=== PATIENT | female | born 1950 | race Caucasian/White ===

== ENCOUNTER → 2017-11-19 11:32 | Outpatient (CLI) | payer MEDICARE, SELFPAY ==
[2017-11-19 15:19] LABS: Anion Gap 9 (5-15); BUN 14 mg/dL (7-18); BUN/Creat Ratio 16.9 RATIO (10-20); Calcium,Total 9.4 mg/dL (8.5-10.1); Chloride 101 mmol/L (98-107); Cholesterol 231 mg/dL (200); Creatinine, Serum 0.83 mg/dL (0.55-1.02); EST Glomerular Filtration Rate 73 mL/min (>60); Est Glom Filt Rate - Afr Amer 88 mL/min (>60); Glucose 94 mg/dL (74-106); High Density Lipoprotein 71 mg/dL; Potassium 3.3 mmol/L (3.5-5.1); Sodium Level 138 mmol/L (136-145); Thyroid Stim Hormone (TSH) 1.46 uIU/mL (0.358-3.74); Triglycerides 140 mg/dL; Very Low Density Lipoprotein 28 mg/dL (5-40)
== END ==
PROVIDERS: Family Provider Family Medicine; PCP Family Medicine; Visit Provider Family Medicine
DX: I10 Essential (primary) hypertension (principal); E78.00 Pure hypercholesterolemia, unspecified; R00.2 Palpitations
CPT/HCPCS: 36415; 80048; 80061; 84443

== ENCOUNTER 2018-01-21 20:59 | Emergency (ER) | payer MEDICARE, SELFPAY ==
[2018-01-21 21:00] VITALS: BP 191/96; PULSE 58; RESP 20; TEMP 36.7; O2SAT 99; BMI 18.8
--- NOTE | 2018-01-21 22:13 | RAD_ITS ---
STUDY: X-RAY - RIGHT SHOULDER REASON FOR EXAM: Female, 67 years old. Fall onto right shoulder. TECHNIQUE: 4 view(s) of the shoulder. COMPARISON: None. FINDINGS: Normal glenohumeral articulation. There is degenerative arthrosis of the acromioclavicular joint without inferior osseous spur formation. There is a comminuted fracture of the lateral clavicle. Normal acromion. There is demineralization of the humerus and visualized osseous structures. The soft tissue structures are unremarkable. Normal visualized pulmonary apex. RAD/Shoulder min 2 Views IMPRESSION: Comminuted fracture of the distal clavicle. Electronically Signed: Jair Rosenbaum DO at 22:37 EST Tel [phone], Service support ,
--- NOTE | 2018-01-21 22:41 | ED.VIS.GEN ---
History of Present Illness Chief Complaint: Fall Informant: Patient Onset: Today Context: Sudden Onset Timing: Continuous Quality: ache/sore Location: right shoulder Current Severity: Mild Maximum Severity: Moderate Worsened by: moving right shoulder, especially above head Relieved by: remaining still Associated Symptoms: none Narrative: Patient was getting out of shower, and slipped on water, falling to her right shoulder. She denies any other injury. She did not hit her head. She has been ambulatory without difficulty, chest pain in her right shoulder. She is right-hand dominant. - Past Medical History (1) HTN (hypertension) Status: Chronic Past Medical History - Allergies and Home Meds Allergies/Adverse Reactions: Allergies Sulfa (Sulfonamide Antibiotics) Allergy (Verified 01/21/18 21:02) Hives TAPE Allergy (Uncoded 01/21/18 21:02) Rash Primary Care Physician: Mikel Meza MD [Primary Care Provider] - Lives: Spouse/ Significant Other Smoking Status: Never smoker Review of Systems Gastrointestinal: Denies: Nausea, Vomiting Musculoskeletal: Reports: Extremity Pain. Denies: Neck pain, Back pain Skin: Denies: Rash, Wounds Neurological: Denies: Headache, Weakness, Numbness Physical Exam Vital Signs/Narrative: Vital Signs Temp Pulse Resp BP Pulse Ox 01/21/18 21:00 98.0 F 58 L 20 H 191/96 H 99 Inital Vital Signs reviewed: Yes General: Well nourished, Well developed, - - well-appearing, nad Head: Normocephalic, Atraumatic Eyes: Perrl, EOMI ENT: Moist mucous membranes, No rhinorrhea Neck: Supple, Nontender, - - FROM Respiratory: No distress, Chest nontender Extremities: No edema, Tenderness - Distal right clavicle including AC joint. No deformities. Nontender at the right proximal humerus. Nontender scapula. Full range of motion of right elbow, wrist. Able to move her right shoulder as far as internal and external rotation and some flexion, but limited range, unable to go above head. Skin: Normal color, No rash Neurological: Alert, Oriented x3, Cranial nerves II-XII grossly intact, Normal Strength, Normal Sensation Psychological: Normal affect Diagnostic/Tx/Re-eval Clinical Impression(s) from Imaging Studies Shoulder X-Ray 01/21/18 22:13 IMPRESSION: Comminuted fracture of the distal clavicle. Electronically Signed: Jair Rosenbaum DO at 22:37 EST Tel [phone], Service support , - Medical Decision Making Patient declined several offers for analgesics here. She also declined a prescription for analgesics. X-ray shows comminuted distal right clavicle fracture. She was advised she will need to follow-up with orthopedics for further evaluation. She was given a sling and instructions for use. ED Disposition - Plan for ED Patient: Disposition: Home or Assisted Living Chief Complaint: Fall Diagnosis: Displaced fracture of lateral end of right clavicle Instructions: ED Fx Clavicle Referrals: Magalie Holt DO [STAFF PHYSICIAN] - 1 Week
--- NOTE | 2018-01-21 22:46 | ED.DCSUM_ITS ---
History of Present Illness Chief Complaint: Fall Informant: Patient Onset: Today Context: Sudden Onset Timing: Continuous Quality: ache/sore Location: right shoulder Current Severity: Mild Maximum Severity: Moderate Worsened by: moving right shoulder, especially above head Relieved by: remaining still Associated Symptoms: none Narrative: Patient was getting out of shower, and slipped on water, falling to her right shoulder. She denies any other injury. She did not hit her head. She has been ambulatory without difficulty, chest pain in her right shoulder. She is right- hand dominant. - Past Medical History (1) HTN (hypertension) Status: Chronic Past Medical History - Allergies and Home Meds Allergies/Adverse Reactions: Allergies Sulfa (Sulfonamide Antibiotics) Allergy (Verified 01/21/18 21:02) Hives TAPE Allergy (Uncoded 01/21/18 21:02) Rash Primary Care Physician: Mikel Meza MD [Primary Care Provider] - Lives: Spouse/ Significant Other Smoking Status: Never smoker Review of Systems Gastrointestinal: Denies: Nausea, Vomiting Musculoskeletal: Reports: Extremity Pain. Denies: Neck pain, Back pain Skin: Denies: Rash, Wounds Neurological: Denies: Headache, Weakness, Numbness Physical Exam Vital Signs/Narrative: Vital Signs Temp Pulse Resp BP Pulse Ox 01/21/18 21:00 98.0 F 58 L 20 H 191/96 H 99 Inital Vital Signs reviewed: Yes General: Well nourished, Well developed, - - well-appearing, nad Head: Normocephalic, Atraumatic Eyes: Perrl, EOMI ENT: Moist mucous membranes, No rhinorrhea Neck: Supple, Nontender, - - FROM Respiratory: No distress, Chest nontender Extremities: No edema, Tenderness - Distal right clavicle including AC joint. No deformities. Nontender at the right proximal humerus. Nontender scapula. Full range of motion of right elbow, wrist. Able to move her right shoulder as far as internal and external rotation and some flexion, but limited range, unable to go above head. Skin: Normal color, No rash Neurological: Alert, Oriented x3, Cranial nerves II-XII grossly intact, Normal Strength, Normal Sensation Psychological: Normal affect Diagnostic/Tx/Re-eval Clinical Impression(s) from Imaging Studies Shoulder X-Ray 01/21/18 22:13 IMPRESSION: Comminuted fracture of the distal clavicle. Electronically Signed: Jair Rosenbaum DO at 22:37 EST Tel [phone], Service support , - Medical Decision Making Patient declined several offers for analgesics here. She also declined a prescription for analgesics. X-ray shows comminuted distal right clavicle fracture. She was advised she will need to follow-up with orthopedics for further evaluation. She was given a sling and instructions for use. ED Disposition - Plan for ED Patient: Disposition: Home or Assisted Living Chief Complaint: Fall Diagnosis: Displaced fracture of lateral end of right clavicle Instructions: ED Fx Clavicle Referrals: Magalie Holt DO [STAFF PHYSICIAN] - 1 Week
[2018-01-21 22:53] VITALS: BP 132/78; PULSE 68; RESP 16; O2SAT 98
== END 2018-01-21 23:01 | disposition home or self-care (01) ==
PROVIDERS: Emergency Provider Emergency Medicine; Family Provider Family Medicine; PCP Family Medicine
DX: S42.031A Displaced fracture of lateral end of right clavicle, initial encounter for closed fracture (principal); W01.0XXA Fall on same level from slipping, tripping and stumbling without subsequent striking against object, initial encounter; Y93.E1 Activity, personal bathing and showering; Y92.002 Bathroom of unspecified non-institutional (private) residence as the place of occurrence of the external cause; Y99.9 Unspecified external cause status; I10 Essential (primary) hypertension
CPT/HCPCS: 73030; 99282

== ENCOUNTER → 2018-01-27 09:35 | Outpatient (CLI) | payer MEDICARE, SELFPAY ==
--- NOTE | 2018-01-27 09:36 | RAD_ITS ---
STUDY: X-RAY - RIGHT CLAVICLE REASON FOR EXAM: Follow-up clavicle fracture. TECHNIQUE: 2 view(s) of the clavicle. COMPARISON: Radiographs 01/21/2018. FINDINGS: There is a minimally displaced fracture of the distal clavicle. Normal acromioclavicular articulation. Normal visualized sternoclavicular articulation. Normal visualized pulmonary apex. RAD/Clavicle IMPRESSION: No interval change of distal clavicle fracture. Electronically Signed: Nathaniel Rosenberg MD at 12:59 EST Tel , Service support ,
== END ==
PROVIDERS: Family Provider Family Medicine; PCP Family Medicine; Referring Provider Orthopaedic Surgery; Visit Provider Orthopaedic Surgery
DX: S42.001A Fracture of unspecified part of right clavicle, initial encounter for closed fracture (principal); X58.XXXA Exposure to other specified factors, initial encounter; Y93.9 Activity, unspecified; Y92.9 Unspecified place or not applicable; Y99.9 Unspecified external cause status
CPT/HCPCS: 73000

== ENCOUNTER → 2018-02-03 14:14 | Outpatient (CLI) | payer MEDICARE, SELFPAY ==
[2018-01-21 21:00] VITALS: BMI 18.8
--- NOTE | 2018-02-03 14:16 | RAD_ITS ---
STUDY: X-RAY - RIGHT CLAVICLE REASON FOR EXAM: Female, 67 years old. Clavicle fracture follow-up TECHNIQUE: 2 view(s) of the clavicle. COMPARISON: 01/27/2018 FINDINGS: Minimally displaced fracture of the distal clavicle is similar when compared to the prior study. Normal acromioclavicular articulation. Normal visualized sternoclavicular articulation. Pleural thickening at the right apex is stable. RAD/Clavicle IMPRESSION: 1. Stable distal right clavicle fracture. Electronically Signed: Lambert Mejia MD at 8:39 EST , Service support ,
== END ==
PROVIDERS: Family Provider Family Medicine; PCP Family Medicine; Referring Provider Physician Assistant; Visit Provider Physician Assistant
DX: S42.001A Fracture of unspecified part of right clavicle, initial encounter for closed fracture (principal); X58.XXXA Exposure to other specified factors, initial encounter; Y93.9 Activity, unspecified; Y92.9 Unspecified place or not applicable; Y99.9 Unspecified external cause status
CPT/HCPCS: 73000

== ENCOUNTER → 2018-02-13 13:29 | Outpatient (CLI) | payer MEDICARE, SELFPAY ==
[2018-01-21 21:00] VITALS: BMI 18.8
--- NOTE | 2018-02-13 13:36 | RAD_ITS ---
HISTORY: Follow-up of fracture COMPARISON: None FINDINGS: Right clavicle 2 views: Redemonstration of a comminuted mildly displaced fracture of the distal right clavicle. Fracture fragments are unchanged in position and fracture lines are less distinct compatible with partial healing. Biapical pleural-parenchymal scarring. No dislocation of the shoulder. RAD/Clavicle IMPRESSION: 1. Healing fracture of the distal right clavicle with stable position of the fracture fragments. at 0720 Reported and signed by: Alirio Ignacio MD Electronically Signed: Alirio Ignacio, at 7:18 EST Tel , Service support ,
--- OUTSIDE RECORDS SUMMARY | 2018-04-10 12:52 | XMS RPT_ITS ---
:1950 Author Organization OH[facility] Care Team Providers Name Role Phone IKER GONSALES Referring Unavailable IKER GONSALES Referring Unavailable Mikel Meza Attending Unavailable Mikel Meza Referring Unavailable Mikel Meza Primary Care Unavailable Mikel Meza Primary Care Unavailable CRYSTAL ARMENDARIZ Attending Unavailable Magalie Holt Attending Unavailable Mikel Meza Referring Unavailable Magalie Holt Attending Unavailable Magalie Holt Referring Unavailable Mikel Meza Primary Care Unavailable Alirio Mendez Attending Unavailable Mikel Meza Referring Unavailable Alirio Mendez Attending Unavailable Alirio Mendez Referring Unavailable Mikel Meza Primary Care Unavailable Alirio Mendez Attending Unavailable Mikel Meza Referring Unavailable Alirio Mendez Attending Unavailable Vanessa, Alirio Referring Unavailable Mikel Meza Primary Care Unavailable PROBLEMS PROBLEMS DATE TYPE CONDITION / CODE ATTENDING STATUS SOURCE 02/13/2018 Unknown S42.001A - Vanessa Alirio Active [place] [facility] Repository clavicle, initial encounter for closed fracture / S42.001A(ICD-10) 08/05/2017 Active Unknown / NA Active [facility] UNK(Unknown) [facility] [place] [facility] 03/18/2017 Active Encounter for NA Active [facility] screening for [facility] [place] malignant Repository neoplasm of colon / Z12.11(ICD-10) PROCEDURES PROCEDURES No Procedure Records FoundRESULTS RESULTS ORTHOPEDIC VISIT Observed: 02/16/2018 Status: F Source: JARED REPORT 4:15 PM [facility] REPOSITORY [facility] [address] [place] [address] OFFICE VISIT Date of Service: 02/13/18 MR#: [id number] Acct: [id number] Name: TYESHA ARREGUIN Rep #: [id number] : 1950 Provider: MIHAI Mendez Age/Sex: 67/F Location: [facility] [place].[facility] Status: Signed Intake Intake Visit Reasons: RIGHT CLAVICLE Is patient in pain?: Yes Pain scale (1-10): 2 Allergies Sulfa (Sulfonamide Antibiotics) Allergy (Verified 02/13/18 13:30) Hives TAPE Allergy (Uncoded 01/21/18 21:02) Rash PFSH Social History Smoking Status: Never smoker HPI RIGHT CLAVICLE: Details: TYESHA ARREGUIN is a 67 year old F here today for a followup on her right clavicle fracture. She states that she is doing much better and having minimal pain. Patient wears her sling most of the time. She has been able to remove her sling and move her elbow and shoulder slightly. Denies numbness, tingling or other associated symptoms. ROS Const Reports system reviewed and no additional complaints, except as docu Eyes Reports system reviewed and no additional complaints, except as docu ENT Reports system reviewed and no additional complaints, except as docu Card Reports system reviewed and no additional complaints, except as docu Resp Reports system reviewed and no additional complaints, except as docu GI Reports system reviewed and no additional complaints, except as docu Reports system reviewed and no additional complaints, except as docu Musc Reports joint pain Skin/Breast Reports system reviewed and no additional complaints, except as docu Neuro Yes system reviewed and no additional complaints, except as docu Psych Reports system reviewed and no additional complaints, except as docu Endo Reports system reviewed and no additional complaints, except as docu Ortho Exam Right Shoulder Skin/Wound: No ecchymosis Contralateral Normal: Yes Testing: Negative AROM-Forward Elevation 0-180, AROM-External Rotation at side 0-60, TTP Biceps or TTP AC Joint SHOULDER: Today in the office there is no evident abnormalities of the right shoulder. She has no localized swelling or ecchymosis at the fracture site. Patient does not have any tenderness on palpation of the distal clavicle where the fracture exists. She still has limited range of motion and stiffness in the shoulder just from being immobilized in a sling for the past 2-3 weeks. She does have good mobility of the elbow at this time. Assessment AND Plan Problems 1. Closed nondisplaced fracture of acromial end of right clavicle with routine healing, subsequent encounter S42.034D Plan Obtained Xrays of patient's right clavicle. Personally reviewed Xrays. There is still an obvious fracture noted with minimal callus formation at the site. There is no dislocation, or lucency noted. See chart for further details. We discussed the x-ray images today which will show no change in position of the same time no obvious callus formation at the site either. She does show improvement in pain as well as having no tenderness at the fracture site today which would indicate there is probably some callus formation forming just not noted on imaging. She is to continue to mobilize the elbow and can use this as tolerated. At this point I feel she is okay to begin to do some passive pendulum swings to start working on some range of motion of the shoulder. I would not do any active movement quite yet but want to start mobilizing the shoulder. She still is to wear the sling when she is out and about can take it off when she is resting at home. Continue to ice and take anti-inflammatories as needed. We will recheck in 3-4 weeks which will be a total of 6 weeks in the sling. We will get x-rays at that time and hope to be able to remove the sling for good to start her in a more active physical therapy. She is to notify of any injuries or worsening pains or problems in the meantime. This note was generated with [employer] dictation software. It may contain incorrect words, spelling, and punctuation that were not noted in checking the note before signing. Orders Orders: Plan Detail Follow Up 1 Month Coding Level of Care Code Off vis,est,level 3 Diagnoses Closed nondisplaced fracture of acromial end of right clavicle with routine healing, subsequent encounter S42.034D Encounter type: subsequent encounter Clavicle location: lateral end Fracture type: closed Fracture alignment: nondisplaced Fracture healing: with routine healing 02/16/18 1615 <Electronically signed by Alirio HOLM> Date Alirio HOLM Cosigner Signature: Date (if applicable) CC: CLAVICLE Observed: 02/13/2018 Status: F Source: [place] 1:36 PM [facility] REPOSITORY [facility] [place] Imaging Services [address] [place] [address] Clavicle MR#: [id number] Acct: [id number] Name: TYESHA ARREGUIN Rep #: [id number] : 1950 F 67 From: Alirio Ignacio MD PCP: Mikel Meza MD Status: REG CLI Study: Clavicle Date of Exam: 02/13/18 Exam# [id number] Ordering Dr: Alirio Mendez HISTORY: Follow-up of fracture COMPARISON: None FINDINGS: Right clavicle 2 views: Redemonstration of a comminuted mildly displaced fracture of the distal right clavicle. Fracture fragments are unchanged in position and fracture lines are less distinct compatible with partial healing. Biapical pleural-parenchymal scarring. No dislocation of the shoulder. RAD/Clavicle IMPRESSION: 1. Healing fracture of the distal right clavicle with stable position of the fracture fragments. at 0720 Reported and signed by: Alirio Ignacio MD Electronically Signed: Alirio Ignacio, at 7:18 EST Tel , Service support , CC: MIHAI Mendez; Mikel Meza MD Early Morning Babysitter: Signed ORTHOPEDIC VISIT Observed: 02/04/2018 Status: F Source: JARED REPORT 10:36 AM [facility] REPOSITORY [facility] Orthopaedics AND Sports Medicine [address] [place] [address] [address] [place] [address] OFFICE VISIT Date of Service: 02/03/18 MR#: [id number] Acct: [id number] Name: TYESHA ARREGUIN Rep #: [id number] : 1950 Provider: MIHAI Mendez Age/Sex: 67/F Location: [facility] [place].[facility] Status: Signed Intake Intake Visit Reasons: RIGHT CLAVICLE Is patient in pain?: No Allergies Sulfa (Sulfonamide Antibiotics) Allergy (Verified 02/03/18 14:21) Hives TAPE Allergy (Uncoded 01/21/18 21:02) Rash PFSH Social History Smoking Status: Never smoker HPI RIGHT CLAVICLE: Details: TYESHA ARREGUIN is a 67 year old F here today for right clavicle fracture followup. Patient notes that she has no pain currently but she has not been moving her arm. Patient states that she has been wearing her sling at all times. Her pain worsens in the evening. She states that she has numbness into her hand in the evening. ROS Const Reports system reviewed and no additional complaints, except as docu Eyes Reports system reviewed and no additional complaints, except as docu ENT Reports system reviewed and no additional complaints, except as docu Card Reports system reviewed and no additional complaints, except as docu Resp Reports system reviewed and no additional complaints, except as docu GI Reports system reviewed and no additional complaints, except as docu Reports system reviewed and no additional complaints, except as docu Skin/Breast Reports system reviewed and no additional complaints, except as docu Neuro Yes system reviewed and no additional complaints, except as docu Psych Reports system reviewed and no additional complaints, except as docu Endo Reports system reviewed and no additional complaints, except as docu Ortho Exam Right Shoulder Skin/Wound: No ecchymosis Contralateral Normal: Yes SHOULDER: Patient is currently wearing her sling in the office today. She has no ecchymosis around the fracture site today. She does not have any tenderness with light palpation of the fracture site. She does have some minor tenderness on the acromial spine and some on the adjacent trapezius muscles. Assessment AND Plan Problems 1. Closed nondisplaced fracture of acromial end of right clavicle, initial encounter S42.034A Plan Obtained Xrays of patient's right clavicle. Personally reviewed Xrays with physician and patient. Patient showed a continued fracture in the distal clavicle area without any significant changes from previous exam. Patient has been doing very well following her sling. Because she is wearing her sling so often this is likely causing some little bit of irritation of the ulnar nerve which is the numbness and tingling that she gets at the end of the day. She is able to remove the sling just to do some movements of her elbow to help reduce this. Otherwise she can continue to stay in the sling for 1 more week to see if this fracture can callus in a little more. She has no tenderness on palpation today no evident ecchymosis or major swelling of the site. She does still guard a loss using the trapezius muscles to hold the arm up which is likely causing some tightness of the muscles in this area. She denies the area and continue to use anti-inflammatories as needed for pain. Patient is scheduled to leave for on Friday for thanksgiving which at this time there is no reason she cannot do that. Patient will follow-up in 1 week for repeat x-rays. She can notify the office in the mean time with any injuries, worsening, or new symptoms. Orders Orders: Plan Detail Follow Up 1 Week Coding Level of Care Code Off vis,est,level 3 Diagnoses Closed nondisplaced fracture of acromial end of right clavicle, initial encounter S42.034A Encounter type: initial encounter Clavicle location: lateral end Fracture type: closed Fracture alignment: nondisplaced 02/04/18 1036 <Electronically signed by Alirio HOLM> Date [facility]: Date (if applicable) CC: CLAVICLE Observed: 02/03/2018 Status: F Source: JARED 2:16 PM [facility] REPOSITORY [facility] Imaging Services [address] [place] [address] Clavicle MR#: [id number] Acct: [id number] Name: TYESHA ARREGUIN Rep #: [id number] : 1950 F 67 From: Lambert Mejia MD PCP: Mikel Meza MD Status: REG CLI Study: Clavicle Date of Exam: 02/03/18 Exam# [id number] Ordering Dr: Alirio Mendez STUDY: X-RAY - RIGHT CLAVICLE REASON FOR EXAM: Female, 67 years old. Clavicle fracture follow-up TECHNIQUE: 2 view(s) of the clavicle. COMPARISON: 01/27/2018 FINDINGS: Minimally displaced fracture of the distal clavicle is similar when compared to the prior study. Normal acromioclavicular articulation. Normal visualized sternoclavicular articulation. Pleural thickening at the right apex is stable. RAD/Clavicle IMPRESSION: 1. Stable distal right clavicle fracture. Electronically Signed: Lambert Mejia MD at 8:39 EST , Service support , CC: MIHAI Mendez; Mikel Meza MD Early Morning Babysitter: Signed ORTHOPEDIC VISIT Observed: 01/27/2018 Status: F Source: JARED REPORT 1:11 PM [facility] REPOSITORY [facility] Orthopaedics AND Sports Medicine [address] [place] [address] OFFICE VISIT Date of Service: 01/27/18 MR#: [id number] Acct: [id number] Name: TYESHA ARREGUIN Rep #: [id number] : 1950 Provider: Magalie Holt DO Age/Sex: 67/F Location: [facility] [place].[facility] Status: Signed Intake Intake Visit Reasons: RT CLAVICLE Is patient in pain?: Yes Allergies Sulfa (Sulfonamide Antibiotics) Allergy (Verified 01/21/18 21:02) Hives TAPE Allergy (Uncoded 01/21/18 21:02) Rash PFSH Social History Smoking Status: Never smoker HPI RT CLAVICLE: Details: TYESHA ARREGUIN is a 67 year old F here today for right clavicle fracture from last when she slipped in the shower landing directly on the left shoulder. She went to the ED and had xrays. She is using tylenol for pain but has been decreasing the use. She complains of shoulder pain. Denies numbness, tingling or other associated symptoms. ROS Musc Reports limited joint movement, Reports joint pain, Reports stiffness, Reports as per HPI Assessment AND Plan 1. Closed displaced fracture of acromial end of right clavicle, initial encounter S42.031A Plan Discussed at this point does not appear that she may need surgical intervention but will follow her closely with x-rays and this may change. Discuss impingement subacromial due to callus and this may need to be addressed at a future time but at this point we will re-x-ray her in 1 week ensure that has not moved if it has we will discuss surgical intervention at that time. X-rays were reviewed and her fracture is stable with no signs of movement since last week. Explained that she can remain in the sling. She should rest as much as possible and limit use of the right side to allow for healing but work on hand, wrist and elbow rom. Reviewed her travel plans and will discuss further with next set of xrays. Follow up in a week for repeat xrays or sooner if pain, swelling, numbness or associated symptoms, or concerns develop. All questions answered. Patient in agreement of plan. Plan Detail Other Orders Orders: Coding Level of Care Code Off vis,new,level 3 Diagnoses Closed displaced fracture of acromial end of right clavicle, initial encounter S42.031A Clavicle location: lateral end Encounter type: initial encounter Fracture alignment: displaced Fracture type: closed 01/27/18 1311 <Electronically signed by Magalie Holt DO> Date Magalie Holt DO Cosigner Signature: Date (if applicable) CC: CLAVICLE Observed: 01/27/2018 Status: F Source: [place] 9:36 AM [facility] REPOSITORY [facility] Imaging Services [address] [place] [address] Clavicle MR#: [id number] Acct: [id number] Name: TYESHA ARREGUIN Rep #: [id number] : 1950 F 67 From: Nathaniel Rosenberg MD PCP: Mikel Meza MD Status: REG CLI Study: Clavicle Date of Exam: 01/27/18 Exam# [id number] Ordering Dr: Magalie Holt DO STUDY: X-RAY - RIGHT CLAVICLE REASON FOR EXAM: Follow-up clavicle fracture. TECHNIQUE: 2 view(s) of the clavicle. COMPARISON: Radiographs 01/21/2018. FINDINGS: There is a minimally displaced fracture of the distal clavicle. Normal acromioclavicular articulation. Normal visualized sternoclavicular articulation. Normal visualized pulmonary apex. RAD/Clavicle IMPRESSION: No interval change of distal clavicle fracture. Electronically Signed: Nathaniel Rosenberg MD at 12:59 EST Tel , Service support , CC: Magalie Holt DO; Mikel Meza MD Early Morning Babysitter: Signed EMERGENCY DEPARTMENT Observed: 01/21/2018 Status: F Source: JARED SUMMARY 10:58 PM [facility] REPOSITORY [facility] Medical Records Department [address] [place] [address] Emergency Department Summary 01/21/18 2241 MR#: [id number] Acct: [id number] Name: TYESHA ARREGUIN Rep #: [id number] : 1950 67 From: Crystal Armendariz MD PCP: Mikel Meza MD Status: REG ER History of Present Illness Chief Complaint: Fall Informant: Patient Onset: Today Context: Sudden Onset Timing: Continuous Quality: ache/sore Location: right shoulder Current Severity: Mild Maximum Severity: Moderate Worsened by: moving right shoulder, especially above head Relieved by: remaining still Associated Symptoms: none Narrative: Patient was getting out of shower, and slipped on water, falling to her right shoulder. She denies any other injury. She did not hit her head. She has been ambulatory without difficulty, chest pain in her right shoulder. She is right- hand dominant. - Past Medical History (1) HTN (hypertension) Status: Chronic Past Medical History - Allergies and Home Meds Allergies/Adverse Reactions: Allergies Sulfa (Sulfonamide Antibiotics) Allergy (Verified 01/21/18 21:02) Hives TAPE Allergy (Uncoded 01/21/18 21:02) Rash Primary Care Physician: Mikel Meza MD [Primary Care Provider] - Lives: Spouse/ Significant Other Smoking Status: Never smoker Review of Systems Gastrointestinal: Denies: Nausea, Vomiting Musculoskeletal: Reports: Extremity Pain. Denies: Neck pain, Back pain Skin: Denies: Rash, Wounds Neurological: Denies: Headache, Weakness, Numbness Physical Exam Vital Signs/Narrative: Vital Signs 01/21/18 21:00 98.0 F 58 L 20 H 191/96 H 99 Inital Vital Signs reviewed: Yes General: Well nourished, Well developed, - - well-appearing, nad Head: Normocephalic, Atraumatic Eyes: Perrl, EOMI ENT: Moist mucous membranes, No rhinorrhea Neck: Supple, Nontender, - - FROM Respiratory: No distress, Chest nontender Extremities: No edema, Tenderness - Distal right clavicle including AC joint. No deformities. Nontender at the right proximal humerus. Nontender scapula. Full range of motion of right elbow, wrist. Able to move her right shoulder as far as internal and external rotation and some flexion, but limited range, unable to go above head. Skin: Normal color, No rash Neurological: Alert, Oriented x3, Cranial nerves II-XII grossly intact, Normal Strength, Normal Sensation Psychological: Normal affect Diagnostic/Tx/Re-eval Clinical Impression(s) from Imaging Studies Shoulder X-Ray 01/21/18 22:13 IMPRESSION: Comminuted fracture of the distal clavicle. Electronically Signed: Jair Rosenbaum DO at 22:37 EST Tel [phone], Service support , - Medical Decision Making Patient declined several offers for analgesics here. She also declined a prescription for analgesics. X-ray shows comminuted distal right clavicle fracture. She was advised she will need to follow-up with orthopedics for further evaluation. She was given a sling and instructions for use. ED Disposition - Plan for ED Patient: Disposition: Home or Assisted Living Chief Complaint: Fall Diagnosis: Displaced fracture of lateral end of right clavicle Instructions: ED Fx Clavicle Referrals: Magalie Holt DO [STAFF PHYSICIAN] - 1 Week What to do if you have Problems For any increased pain, shortness of breath, bleeding, nausea or vomiting, chest pain, or any unexpected problems, contact your Primary Care Provider. Call [facility] ([phone]) or report to the closest Emergency Room. Call 911 if necessary. 01/21/18 9759 <Electronically signed by Crystal Armendariz MD> Date Crystal Armendariz MD Cosigner Signature (If Indicated): Date CC: Mikel Meza MD SHOULDER MIN 2 VIEWS Observed: 01/21/2018 Status: F Source: JARED 10:13 PM [facility] REPOSITORY [facility] Imaging Services [address] [place] [address] Shoulder min 2 Views MR#: [id number] Acct: [id number] Name: TYESHA ARREGUIN Rep #: [id number] : 1950 F 67 From: Jair Rosenbaum DO PCP: Mikel Meza MD Status: REG ER Study: Shoulder min 2 Views Date of Exam: 01/21/18 Exam# [id number] Ordering Dr: Crystal Armendariz MD STUDY: X-RAY - RIGHT SHOULDER REASON FOR EXAM: Female, 67 years old. Fall onto right shoulder. TECHNIQUE: 4 view(s) of the shoulder. COMPARISON: None. FINDINGS: Normal glenohumeral articulation. There is degenerative arthrosis of the acromioclavicular joint without inferior osseous spur formation. There is a comminuted fracture of the lateral clavicle. Normal acromion. There is demineralization of the humerus and visualized osseous structures. The soft tissue structures are unremarkable. Normal visualized pulmonary apex. RAD/Shoulder min 2 Views IMPRESSION: Comminuted fracture of the distal clavicle. Electronically Signed: Jair Rosenbaum DO at 22:37 EST Tel [phone], Service support , CC: CRYSTAL ARMENDARIZ MD; Mikel Meza MD Early Morning Babysitter: Signed BASIC METABOLIC Collected: 11/19/2017 Status: F Source: JARED PROFILE (BMP) 11:37 AM [facility] REPOSITORY Order Comment: Order Date: 05/29/17 Order Info: 0667-1 - BMP Order Info: [id number] - LIPID Order Info: 3016-3 - TSH TYPE CODE TESTS RESULT OUT OF RANGE REFERENCE UNITS LAB L501.0100 74-106 mg/dL Normal GLU 94 Result Comment: Please note revised GLUCOSE reference range effective 2017. LAB L501.1000 7-18 mg/dL Normal BUN 14 LAB L501.1100 0.55-1.02 mg/dL Normal CREAT,SERUM 0.83 Result Comment: The validity of the calculated GFR AND GFRAA in patients over 70 years has not been determined. Clinical correlation is essential. LAB L501.1110 >60 mL/min Normal EST GFR 73 Result Comment: Non- GFR Calc LAB L501.1115 >60 mL/min Normal EST GFR - AA 88 Result Comment: GFR Calc LAB L501.1300 10-20 RATIO Normal BUN/CRE 16.9 LAB L501.2200 8.5-10.1 mg/dL CA Normal 9.4 LAB L501.5300 136-145 mmol/L NA Normal 138 LAB L501.5600 3.5-5.1 mmol/L Low K 3.3 LAB L501.5900 98-107 mmol/L CL Normal 101 LAB L501.6100 21.0-32.0 mmol/L Normal CO2 28.0 LAB L501.6200 5-15 Normal GAP 9 Performed By: #### L500.2500, L500.4100, L501.9520 #### [facility] [address] [place], [place], [address] LIPID PROFILE Collected: 11/19/2017 Status: F Source: JARED 11:37 AM [facility] REPOSITORY Order Comment: Order Date: 05/29/17 Order Info: 0667-1 - BMP Order Info: [id number] - LIPID Order Info: 3016-3 - TSH TYPE CODE TESTS RESULT OUT OF RANGE REFERENCE UNITS LAB L501.4900 200 mg/dL High CHOL 231 Result Comment: <200 mg/dL Desirable 200-240 mg/dL Borderline >240 mg/dL High Risk LAB L501.5000 mg/dL Normal TRIG 140 Result Comment: The drugs N-Acetylcysteine and Metamizole may falsely depress this assay. Serum Triglycerides Reference Interval Normal <150 mg/dL Borderline high 150 - 199 mg/dL High 200 - 499 mg/dL Very High > or = 500 mg/dL LAB L501.6400 mg/dL Normal HDL 71 Result Comment: The drugs N-Acetylcysteine and Metamizole may falsely depress this assay. Reference Range HDL <40 mg/dL Low HDL Cholesterol HDL >or= 60 mg/dL High HDL Cholesterol LAB L501.6500 0-130 mg/dL High LDL 132 LAB L501.6600 5-40 mg/dL Normal VLDL 28 Performed By: #### L500.2500, L500.4100, L501.9520 #### [facility] [address] [place], [address] THYROID STIM HORMONE Collected: 11/19/2017 Status: F Source: [place] (TSH) 11:37 AM [facility] REPOSITORY Order Comment: Order Date: 05/29/17 Order Info: 0667-1 - BMP Order Info: 98232-9 - LIPID Order Info: 3016-3 - TSH TYPE CODE TESTS RESULT OUT OF RANGE REFERENCE UNITS LAB L501.9520 0.358-3.74 uIU/mL Normal TSH 1.46 Performed By: #### L500.2500, L500.4100, L501.9520 #### [facility] [address] [place], [address] CNCO Observed: 08/05/2017 Status: COMPLETED Source: [place] 9:34 AM [facility] [place] REPOSITORY O ID: [id number] Author: Mammography Coordinator Service: (none) Author Type: Physician Type: Letter Filed: 08/06/2017 11:31 PM Note Text: August 05, 2017 PID: [id number] Tyesha Arreguin [address] [place] [address] Dear Ms. Arreguin, We are pleased to inform you that the results of your recent breast imaging exam on 08/05/2017 are normal. Early detection of cancer is very important. We also understand recommendations regarding breast cancer screening are controversial. Please discuss with your primary care provider which strategy is best for you and whether a mammogram is right for you. Your imaging studies and report will be kept on file at [facility] as part of your permanent medical record and are available for your continuing care. Thank you for allowing us to help in meeting your health care needs. Sincerely, Dr. Coyle Interpreting Radiologist [facility] (Normal over 40) [facility] DIAGNOSTIC LT Observed: 08/05/2017 Status: F Source: [place] 9:[address] [facility] REPOSITORY * * *Final Report* * * DATE OF EXAM: Aug 05 2017 9:26AM W 0621 - [facility] DIAGNOSTIC LT / PROCEDURE REASON: 6 month left breast / abnormal mammogram * * * * Physician Interpretation * * * * RESULT: #[id number] - [facility] DIAGNOSTIC LT UNILATERAL LEFT DIGITAL DIAGNOSTIC MAMMOGRAM WITH CAD: 08/05/2017 HISTORY: 6 Month Left Breast / Abnormal Mammogram /priors available for comparison. RESULT: TECHNIQUE: The study was acquired using full field digital technology and interpreted from soft copy. Current study was also evaluated with a Computer Aided Detection (CAD). Comparison is made to exams dated: 02/04/2017 mammogram - [facility], 01/23/2017 mammogram, 01/16/2016 mammogram, and 01/13/2015 mammogram - [facility]. The tissue of the left breast is heterogeneously dense. This may lower the sensitivity of mammography. No significant masses, calcifications, or other findings are seen in the breast. There has been no significant interval change. IMPRESSION: NEGATIVE There is no mammographic evidence of malignancy. Return to annual mammogram screening schedule is recommended. Marielena lira/brian:08/05/2017 09:34:11 Promotion Manager: Mayra YARBROUGH)(Yulia), [facility] letter sent: Normal over 40 Mammogram BI-RADS: 1 Negative Early Morning Babysitter: Brian Transcribe Date/Time: Aug 05 2017 9:27A Dictated by: MARIELENA COYLE DO This examination was interpreted and the report reviewed and electronically signed by: MARIELENA COYLE DO on Aug 05 2017 9:34AM EST [id number] [id number] Observed: 08/05/2017 Status: COMPLETED Source: [place] 9:[address] [facility] REPOSITORY HNO ID: [id number] Author: Marlyn Ling Service: (none) Author Type: (none) Type: Progress Notes Filed: 08/05/2017 9:35 AM Note Text: Radiology Service Progress Note PATIENT NAME: Tyesha Arreguin DATE OF SERVICE: August 05, 2017 TIME: 9:10 AM PATIENT IDENTITY VERIFICATION COMPLETED USING TWO (2) METHODS: Patient confirmed name verbally and Date of . PATIENT GENDER DATA: Female. status: : No status: NO. PATIENT RELEVANT IMPLANT DATA REVIEWED: Not Applicable RADIOLOGY DEPARTMENT: Women's Health Left diag mammogram PERIPHERAL IV DATA: Not applicable SIGNED BY: Marlyn Segovia Rt August 05, 2017 9:10 AM FECAL OCCULT BLD Collected: 03/17/2017 Status: F Source: [facility] 11:48 AM [facility] REPOSITORY TYPE CODE TESTS RESULT OUT OF REFERENCE UNITS RANGE LAB IFO Negative Immuno Negative FOB Result Comment: This test was developed and its performance characteristics determined by [facility]'s Peter Sheehan [facility][Note 3][facility] [place] ([facility]). It has not been cleared or approved by the FDA. [facility] is regulated under CLIA as qualified to perform high-complexity testing. This test is used for clinical purposes. It should not be regarded as investigational or for research. Performed By: #### IFOBT #### [facility] [address] [address] ALLERGIES ALLERGIES DATE TYPE / CODE NAME / CODE REACTION SEVERITY SOURCE 02/13/2018 Drug Sulfa Hives Unknown [place] Allergy/[id number]( (Sulfonamide Community SNOMED CT) Antibiotics)/ Hospital [id number](RX Repository NORM) 01/21/2018 Miscellaneous TAPE Rash Unknown [place] Allergy/182962111( [facility] SNOMED CT) Hospital Repository 08/15/2006 Miscellaneous OTHER [place] Allergy/830830436( [facility] SNOMED CT) [place] Repository 03/05/2005 Chemical/[id number] ADHESIVE TAPE ITCHING [facility] (SNOMED CT) (ROSINS) [facility] [place] Repository 03/05/2005 Drug SULFA INTOLERANCE [facility] [place] Class/[id number](SN (SULFONAMIDE [facility] OMED CT) ANTIBIOTICS) [place] Repository ENCOUNTERS ENCOUNTERS ADMIT/DISCHARGE ACCOUNT ADMITTING ENCOUNTER LOCATION SOURCE NUMBER CLASS 02/13/2018 [id number] [facility] ing:HPRAD Repository 02/13/2018/02/14/20 [id number] Ambulatory [facility] [place] [facility] [place] Repository 02/03/2018 [id number] [facility] ing:HPRAD Repository 02/03/2018/02/04/20 [id number] Ambulatory [facility] [place] [facility]Critical [facility] Repository 01/27/2018 [id number] Ambulatory [facility] ing:HPRAD Repository 01/27/2018/01/28/20 [id number] Ambulatory BMS[facility] [place] [facility] [place].Critical access hospital Repository 01/21/2018/01/22/20 [id number] Emergency [address] ing:ED Repository 11/19/2017 [id number] Ambulatory [facility] ing:MTLAB Repository 08/05/2017/08/06/19 [id number] Ambulatory [address] Repository 03/18/2017 [id number] Ambulatory [facility] Repository PAYERS PAYERS ENCOUNTER GUARANTOR PAYER SUBSCRIBER SOURCE 02/13/2018 TYESHA Griffin Primary Insurance:AETKESHIA Coleman [id number] MCRPolicy Number: OAKLEAFDOB: [facility] JOAN SANDERSBLGWZYEffective [id number] Date:5048-68-16RJ BOX Repository [address]Ixq: [phone] NBA ZAVALETA [phone] () [phone]: 02/13/2018 Secondary NOT GIVENUNK [place] Insurance:SELF PAY Community INSURANCEPolicy Number: Hospital Effective Repository Date:2018-02-13 02/13/2018 TYESHA Griffin Primary Insurance:LEBRONTKESHIA Coleman [id number] MCRPolicy Number: OAKLEAFDOB: [facility] JOAN SANDERSBLGWZYEffective [id number], [place] Date:5799-90-34MD BOX Repository [address]Vot: [phone] NBA ZAVALETA [phone] () [phone]: 02/13/2018 Secondary NOT GIVENUNK [place] Insurance:SELF PAY Community INSURANCEPolicy Number: Hospital Effective Repository Date:2018-02-13 02/03/2018 TYESHA R Primary Insurance:AETNA TYESHA Griffin Jared [id number] MCRPolicy Number: OAKLEAFDOB: Community JOAN Lares [id number] [place] Date:1786-06-93VV BOX Repository [address]Fnd: [phone] [place], [place] [phone] (HP) [phone]: 02/03/2018 Secondary NOT GIVENUNK [place] Insurance:SELF PAY Community INSURANCEPolicy Number: Hospital Effective Repository Date:2018-02-03 02/03/2018 TYESHA R Primary Insurance:AETNA TYESHA Griffin Jared [id number] MCRPolicy Number: OAKLEAFDOB: Community JOAN Meredithctive [id number] [facility] Rehabilitation [facility] [place] Date:7297-27-71SO BOX Repository [address]Ptv: [phone], [place] [phone] () [phone]: 02/03/2018 Secondary NOT GIVENUNK [place] Insurance:SELF PAY Community INSURANCEPolicy Number: Hospital Effective Repository Date:2018-02-03 01/27/2018 TYESHA R Primary Insurance:AETNA TYESHA Griffin [place] [id number] MCRPolicy Number: OAKLEAFDOB: Community JOAN Meredithctive [id number] [facility] [place] Date:1611-92-43IN BOX Repository [address]Cbo: [phone] [place], [place] [phone] (HP) [phone]: 01/27/2018 Secondary NOT GIVENUNK [place] Insurance:SELF PAY Community INSURANCEPolicy Number: Hospital Effective Repository Date:2018-01-27 01/27/2018 TYESHA R Primary Insurance:AETNA TYESHA Griffin [place] [id number] MCRPolicy Number: OAKLEAFDOB: Community JOAN Meredithctive [id number] [place] [facility] Date:7267-95-36IS BOX Repository [address]Jrp: [phone] [place] [phone] (HP) [phone]: 01/27/2018 Secondary NOT GIVENUNK [place] Insurance:SELF PAY Community INSURANCEPolicy Number: Hospital Effective Repository Date:2018-01-27 01/21/2018 TYESHA Griffin Primary Insurance:AETNA TYESHA Coleman [id number] MCRPolicy Number: OAKLEAFDOB: Community JOAN CLARKWANTONIOffective [id number], [place] Date:5431-56-87UY BOX Repository [address]Drz: [phone] [place] [phone] (HP) [phone]: 01/21/2018 Secondary NOT GIVENUNK [place] Insurance:SELF PAY Community INSURANCEPolicy Number: Hospital Effective Repository Date:2018-01-21 11/19/2017 TYESHA Griffin Primary Insurance:AETNA TYESHAMIRA Coleman [id number] MCRPolicy Number: OAKLEAFDOB: Community FRANCO ROBERTAGWZYEffective [id number], [place] Date:1152-83-81SJ BOX Repository [address]Usj: [phone] [place] [phone] (HP) [phone]: 11/19/2017 Secondary NOT GIVENUNK [place] Insurance:SELF PAY Community INSURANCEPolicy Number: Hospital Effective Repository Date:2017-11-19
== END ==
PROVIDERS: Family Provider Family Medicine; PCP Family Medicine; Referring Provider Physician Assistant; Visit Provider Physician Assistant
DX: S42.001A Fracture of unspecified part of right clavicle, initial encounter for closed fracture (principal); X58.XXXA Exposure to other specified factors, initial encounter; Y93.9 Activity, unspecified; Y92.9 Unspecified place or not applicable; Y99.9 Unspecified external cause status
CPT/HCPCS: 73000

== ENCOUNTER → 2018-03-05 09:29 | Outpatient (CLI) | payer MEDICARE, SELFPAY ==
--- NOTE | 2018-03-05 09:31 | RAD_ITS ---
STUDY: X-RAY - RIGHT CLAVICLE REASON FOR EXAM: Female, 67 years old. Follow-up, distal right clavicle fracture. TECHNIQUE: 2 view(s) of the clavicle. COMPARISON: 02/13/2018, 02/03/2018, 01/27/2018, 01/21/2018 x-ray's. FINDINGS: Distal clavicle fracture. Comminuted. Stable positioning of fracture fragments. Mild displacement and impaction. The clavicular head remains in articulation with the acromion but is elevated by approximately 50%, distending the capsule. Features are stable compared to prior imaging of 02/13/2018. No significant evidence of interval healing, no apparent bridging callus formation. RAD/Clavicle IMPRESSION: Incomplete union comminuted distal clavicle fracture. No significant evidence of bridging callus formation. Suspected mild AC joint separation. There is elevation of the clavicular head relative to the acromion, uncovering articular surface by approximately 50%. Electronically Signed: Abhinav Navarro MD at 14:02 EST Tel , Service support ,
== END ==
PROVIDERS: Family Provider Family Medicine; PCP Family Medicine; Referring Provider Physician Assistant; Visit Provider Physician Assistant
DX: S42.001A Fracture of unspecified part of right clavicle, initial encounter for closed fracture (principal); X58.XXXA Exposure to other specified factors, initial encounter; Y93.9 Activity, unspecified; Y92.9 Unspecified place or not applicable; Y99.9 Unspecified external cause status
CPT/HCPCS: 73000

== ENCOUNTER → 2018-04-20 09:02 | Outpatient (CLI) | payer MEDICARE, SELFPAY ==
--- NOTE | 2018-04-20 09:04 | RAD_ITS ---
STUDY: X-RAY - RIGHT CLAVICLE REASON FOR EXAM: Female, 67 years old. Right clavicular fracture. Follow-up examination. TECHNIQUE: 2 view(s) of the clavicle. COMPARISON: Comparison is made with prior examination dated March 05, 2018. FINDINGS: Stable appearance of the nondisplaced fracture of the distal aspect of the right clavicle. Normal acromioclavicular articulation. Normal visualized sternoclavicular articulation. Normal visualized pulmonary apex. RAD/Clavicle IMPRESSION: Stable examination. Electronically Signed: Lloyd Khan MD at 14:21 EST , Service support ,
== END ==
PROVIDERS: Family Provider Family Medicine; PCP Family Medicine; Referring Provider Physician Assistant; Visit Provider Physician Assistant
DX: S42.001A Fracture of unspecified part of right clavicle, initial encounter for closed fracture (principal); X58.XXXA Exposure to other specified factors, initial encounter; Y93.9 Activity, unspecified; Y92.9 Unspecified place or not applicable; Y99.9 Unspecified external cause status
CPT/HCPCS: 73000

== ENCOUNTER 2018-04-20 10:30 | Outpatient (RCR) | payer MEDICARE, SELFPAY ==
--- NOTE | 2018-03-12 07:31 | HP.PTEVAL_ITS ---
Patient's Visit Information TRACIE ARREGUIN is a 67 year old F referred to Physical Therapy by MIHAI Valero with a diagnosis of R clavicle fracture.. Date of Evaluation: 03/05/18 Physical Therapist: Alber Hernandez DPT - Visit Plan Frequency: 2-3x /Week Duration: 4-6 Weeks Plan: 1. )Start with PROM of R shoulder and AAROM of R shoulder 2.) Progress to AROM as tolerated. 3.) Add in light scapular strengthening exercises (non painfull and non wt. bearing). 4.) once able to have pain free near full AROM may add in light RTC strengthening. May use modalities throughout to reduce symptoms. - Subjective Findings: Pt. is here today for her initial evaluation with diagnosis of R clavical fracture. Pt. reports falling in her shower ~6 weeks ago. Pt. has been in a sling since and has been diligently wearing her sling. Pt. has not been referred to PT to increase her ROM and decrease risk for a frozen shoulder. Pt. prior to this accident with totally independent with all ADLs and IADLS. Pt. reports no pain at rest, but does have pain with attempt of ROM over head, with bathing and with UB dressing. Any lifting also causing increase in symptoms. Pt. has been able to sleep, but has difficutly falling asleep due to usually a side sleeper. Pt. denies N/T in either UE. Pt. is hopeful to increase her ROM and strength in order to get back to all recreational activities without issues. - Pain R shoulder Pain Intensity (Out of 10): 0 Pain Intensity Range: 0, 4 - Objective POSTURE: Pt. has slight forward shoulders, pt. tends to keep RUE in guarded posture in sitting and standing. Pt. is able to correct scapular protraction with VCing, but difficulty maintaining. PALPATION: Pt. has increased soreness at subacromial space and along clavicle. Pt. has no distal UE pain or scapular soreness. NEURO: Normal, all intact. Normal DTR bilaterally. ROM: L shoulder- full AROM without pain with over pressures. R elbow- full no pain; shoulder- AROM- flexion- 89deg, abd 78deg, functional ER external auditory meatus with abherrant motion, IR R PSIS. PROM- flexion 98deg, abd 88deg, ER at 30deg of abd 20deg, IR- not tested. MMT: LUE- 5-/5 generally throughout. RUE- wrist- 5/5 throughout; elbow- 4+/5 throughotu mild increase NW; shoulder 3/5 generally did not test overpressure this date. - Goals Goal 1:: Pt. to be I with HEP. Goal Time Frame: 4-6 Weeks Goal 2:: Pt. to have increased strength of R shoulder to atleast 4/5 throughout allowing for increased ability to complete all ADLs and recreational activities. Goal Time Frame: 4-6 Weeks Goal 3:: Pt. to have increased AAROM of R shoulder to full without increase in symptoms. Goal Time Frame: 2-4 Weeks Goal 4:: Pt. to have full R shoulder AROM without increase in symptoms. Goal Time Frame: 4-6 Weeks Goal 5:: Pt. be able to sleep throughout the night without increase in symptoms. Goal Time Frame: 4-6 Weeks Goal 6:: Pt. to resume all ADLs and recreational activities without increase in smptoms. Goal Time Frame: 4-6 Weeks - Rehabilitation Potential Physical Therapy Diagnosis: Pt. has signs and symptoms consistent with decreased ROM of R shoulder after sustaining and R clavicle fracture. Recent xray shows fracture is still healing. Pt. would benefit from PT at this point in time to increase ROM to prevent risk for adhesive capusilitis. Rehabilitation Potential: Excellent - Anticipated Interventions Patient/Client Instruction: Educate patient on: Condition, Plan of Care, Risk Factors, Benefits of Fitness Program For the Purpose of:: To improve decision making, To facilitate caregiver knowledge, To improve self management, To prevent re-injury, To improve ability to perform tasks related to life management, To improve tolerance to ADL's Therapeutic Exercise to Include: Strength training, Power training, Endurance training, Body mechanics, Postural training, Flexibilty training, Passive ROM, Active ROM, Scapular Strength/Stabilization For the Purpose of:: To decrease pain, To increase ROM, To improve nutrient delivery to tissue, To increase oxygenation perfusion, To improve muscle performance and motor function, To improve ability to perform ADL's, To improve health of tissue, To decrease soft tissue restriction, To increase flexibi lity/ROM Manual Therapy Techniques to Include: Mobilization, Passive ROM, Soft tissue mobilization For the Purpose of:: To decrease pain, To decrease swelling/inflammation, To increase ROM, To improve nutrient delivery to tissue, To increase oxygenation perfusion, To improve muscle performance and motor function Cryotherapy (ice pack, ice massage): Yes Thermo therapy (hot pack): Yes Ultrasound (thermal/non thermal): Yes For the Purpose of:: To decrease pain, To decrease swelling/inflammation, To increase ROM Thank you for the opportunity to evaluate your patient. For Medicare and Medicare HMO plans, please review the plan of care and approve it. It will need to be FAXED BACK to us at [phone] for Medicare purposes. For Medicare only, by signing this I certify the plan of care. Please let me know if there are questions or concerns regarding this plan of care. Physician Signature: Date:
--- NOTE | 2018-04-20 11:57 | HP.PTDCSUM ---
HP - PT D/C Summary It has been my pleasure to treat TRACIE ARREGUIN under orders from MIHAI Valero, for the diagnosis of R clavicle fracture. for a total of 13 visit(s). Discharge Date: 04/20/18 Please see the following information for a summary of their discharge status. - Subjective Subjective: Pt. reports I saw the doctor today and it is still not fully healed. Pt. reports being compliant without issues with all home and gym exercises. pt. reports minimal pain at this point in time. Pt. is pleased with her progress. Pt. reports having some discomfort with sleeping on her L side with letting her R arm hang over her. Pt. reports no issues throughout the day. - Pain R shoulder Pain Intensity (Out of 10): 0 - Overall Improvement % Improvement: 95 - Objective Objective/Function: R shoulder Basically full symmetrical ROM without increase in symptoms. MMT: Pt. has 4+/5 throughout R shoulder, except 4/5 ER. Pt. has no pain with testing this date. Pt. is no longer having any RTC type symptoms. Pt. pleased. Pt. was advised in gym exercises to complete 3-4 times per week PRE's. Pt. consents to this plan. - Goals Goal 1:: Pt. to be I with HEP. Goal Progress: Goal Met Goal 2:: Pt. to have increased strength of R shoulder to atleast 4/5 throughout allowing for increased ability to complete all ADLs and recreational activities. Goal Progress: Goal Met Goal 3:: Pt. to have increased AAROM of R shoulder to full without increase in symptoms. Goal Progress: Goal Met Goal 4:: Pt. to have full R shoulder AROM without increase in symptoms. Goal Progress: Goal Met Goal 5:: Pt. be able to sleep throughout the night without increase in symptoms. Goal Progress: Progressing Goal 6:: Pt. to resume all ADLs and recreational activities without increase in smptoms. Goal Progress: Goal Met - Plan Plan: Pt. will be DC to gym exercises at this point intime. Pt. was able to demonstrate them back to PT without issues. pt. pleased. - D/C Information Discharge Comments: Pt. will be DC from PT at this point in time. Pt. reports no longer having symptoms, except slight symptoms at night. Pt. has decent strength, with good ROM. Pt. consents to gym exercises for focus on R shoulder strengthening and stability. Pt. to complete 3-4 times per week. Pt. to follow up with physician if increasd pain starts to occur. If there are questions or concerns regarding this patient's physical therapy, please feel free to call me at [phone]. Thank you for the referral of this patient. Sincerely, Alber Hernandez DPT
== END 2018-04-20 19:00 | disposition home or self-care (01) ==
LOC: PT 10:30
PROVIDERS: Family Provider Family Medicine; PCP Family Medicine; Referring Provider Physician Assistant; Visit Provider Physician Assistant
DX: S42.001D Fracture of unspecified part of right clavicle, subsequent encounter for fracture with routine healing (principal)
CPT/HCPCS: 97110; 97161; 97530

== ENCOUNTER → 2018-12-01 10:19 | Outpatient (CLI) | payer MEDICARE, SELFPAY ==
[2018-12-01 12:19] LABS: Absolute Lymphocyte Count 1.49 X10^3/uL (0.83-4.51); Absolute Neutrophil Count 2.4 X10^3/uL (2.0-7.7); Basophil# 0.02 X10^3/uL; Basophil% 0.4 % (0-1); Eosinophil# 0.06 X10^3/uL; Eosinophils% 1.3 % (0-5); Hematocrit 29.2 % (37-47); Lymphocyte # 1.49 X10^3/ul (4.0); Lymphocyte % 33.5 % (19-41); Mean Platelet Vol. 11.4 fl (6.2-12.0); Monocyte# 0.43 X10^3/uL; Monocyte% 9.7 % (0-10); NRBC Flagged by Analyzer 0 % (0-5); Neutrophil # 2.44 X10^3/uL (2.7-7.7); Neutrophil % 54.9 % (47-70); POSITIVE COUNT YES; Platelet Count 198 K/mm3 (150-450); RBC Distribution Width CV 12.3 % (11.6-14.6); RBC Distribution Width SD 46.6 fl (35.1-43.9); Red Blood Count 2.78 M/mm3 (4.2-5.4); White Blood Count 4.5 K/mm3 (4.4-11.0)
[2018-12-01 12:43] LABS: Anion Gap 5 (5-15); BUN 12 mg/dL (7-18); BUN/Creat Ratio 13.7 RATIO (10-20); Calcium,Total 9.5 mg/dL (8.5-10.1); Chloride 104 mmol/L (98-107); Cholesterol 239 mg/dL (200); Creatinine, Serum 0.88 mg/dL (0.55-1.02); EST Glomerular Filtration Rate 68 mL/min (>60); Est Glom Filt Rate - Afr Amer 83 mL/min (>60); Glucose 86 mg/dL (74-106); High Density Lipoprotein 79 mg/dL; Mean Corpuscular Hgb 43.2 pg (27.0-32.0); Potassium 3.6 mmol/L (3.5-5.1); Sodium Level 140 mmol/L (136-145); Triglycerides 95 mg/dL; Very Low Density Lipoprotein 19 mg/dL (5-40)
[2018-12-01 12:44] LABS: Mean Corp Hgb Conc 41.1 g/dL (32-36)
[2018-12-01 12:45] LABS: Vitamin D,25 Hydroxy 93.5 ng/mL (29.95-100.01)
== END ==
PROVIDERS: Family Provider Family Medicine; PCP Family Medicine; Referring Provider Family Medicine; Visit Provider Family Medicine
DX: I10 Essential (primary) hypertension (principal); E78.00 Pure hypercholesterolemia, unspecified; R53.83 Other fatigue; M85.80 Other specified disorders of bone density and structure, unspecified site
CPT/HCPCS: 36415; 80048; 80061; 82306; 85025

== ENCOUNTER → 2019-01-19 09:58 | Outpatient (CLI) | payer MEDICARE, SELFPAY ==
[2019-01-19 13:30] LABS: Absolute Lymphocyte Count 1.68 X10^3/uL (0.83-4.51); Basophil# 0.03 X10^3/uL; Basophil% 0.4 % (0-1); Eosinophil# 0.04 X10^3/uL; Eosinophils% 0.5 % (0-5); Hematocrit 38.8 % (37-47); Lymphocyte # 1.68 X10^3/ul (4.0); Lymphocyte % 22.4 % (19-41); Mean Corp Hgb Conc 33.5 g/dL (32-36); Mean Corpuscular Hgb 34.3 pg (27.0-32.0); Mean Corpuscular Volume 102.4 fL (81-99); Mean Platelet Vol. 11.6 fl (6.2-12.0); Monocyte# 0.75 X10^3/uL; NRBC Flagged by Analyzer 0 % (0-5); Neutrophil # 4.99 X10^3/uL (2.7-7.7); Neutrophil % 66.4 % (47-70); Platelet Count 175 K/mm3 (150-450); RBC Distribution Width CV 12.2 % (11.6-14.6); RBC Distribution Width SD 46.1 fl (35.1-43.9); Red Blood Count 3.79 M/mm3 (4.2-5.4); White Blood Count 7.5 K/mm3 (4.4-11.0)
== END ==
PROVIDERS: Family Provider Family Medicine; PCP Family Medicine; Referring Provider Family Medicine; Visit Provider Family Medicine
DX: R53.83 Other fatigue (principal)
CPT/HCPCS: 36415; 85025

== ENCOUNTER → 2019-09-14 08:41 | Outpatient (CLI) | payer MEDICARE, SELFPAY ==
[2019-09-14 10:06] LABS: Absolute Lymphocyte Count 1.59 X10^3/uL (0.83-4.51); Absolute Neutrophil Count 3.5 X10^3/uL (2.0-7.7); Basophil# 0.02 X10^3/uL; Basophil% 0.3 % (0-1); Eosinophil# 0.06 X10^3/uL; Hematocrit 38.8 % (37-47); Hemoglobin 12.5 g/dL (12.0-15.0); Lymphocyte # 1.59 X10^3/ul (4.0); Lymphocyte % 27.1 % (19-41); Mean Corp Hgb Conc 32.2 g/dL (32-36); Mean Corpuscular Hgb 33.7 pg (27.0-32.0); Mean Corpuscular Volume 104.6 fL (81-99); Mean Platelet Vol. 11.4 fl (6.2-12.0); Monocyte# 0.65 X10^3/uL; Monocyte% 11.1 % (0-10); NRBC Flagged by Analyzer 0 % (0-5); Neutrophil # 3.53 X10^3/uL (2.7-7.7); Neutrophil % 60.2 % (47-70); Platelet Count 216 K/mm3 (150-450); RBC Distribution Width CV 12.7 % (11.6-14.6); RBC Distribution Width SD 48.7 fl (35.1-43.9); Red Blood Count 3.71 M/mm3 (4.2-5.4); White Blood Count 5.9 K/mm3 (4.4-11.0)
[2019-09-14 10:17] LABS: Vitamin B12 905 pg/mL (211-911)
[2019-09-14 10:53] LABS: AST(SGOT) 27 U/L (15-37); Alanine Aminotransfer ALT/SGPT 26 U/L (13-56); Albumin, Serum 3.7 g/dL (3.2-5.0); Alkaline Phosphatase 73 U/L (45-117); Anion Gap 5 (5-15); BUN 22 mg/dL (7-18); BUN/Creat Ratio 26.4 RATIO (10-20); Calcium,Total 9.3 mg/dL (8.5-10.1); Chloride 102 mmol/L (98-107); Cholesterol 247 mg/dL (200); Creatinine, Serum 0.83 mg/dL (0.55-1.02); EST Glomerular Filtration Rate 72 mL/min (>60); Est Glom Filt Rate - Afr Amer 87 mL/min (>60); Globulin 3.8 g/dL (2.2-4.2); Glucose 94 mg/dL (74-106); High Density Lipoprotein 77 mg/dL; Magnesium 2.3 mg/dL (1.6-2.6); Potassium 3.7 mmol/L (3.5-5.1); Protein, Total 7.5 g/dL (6.4-8.2); Sodium Level 139 mmol/L (136-145); Thyroid Stim Hormone (TSH) 3.37 uIU/mL (0.358-3.74); Triglycerides 103 mg/dL; Very Low Density Lipoprotein 21 mg/dL (5-40)
[2019-09-16 12:40] LABS: Bacteria 0 SEEN /hpf (None Seen); Color, Urine Yellow (Yellow); Glucose, Dipstick Normal (Normal); Ketone-Dipstick Negative (Negative); Leukocyte Esterase-Dipstick Negative /ul (Negative); Mucous, Urine 0 SEEN /hpf (<or=2+); Nitrite-Dipstick Negative (Negative); Occult Blood-Urine Negative /ul (Negative); Protein-Dipstick Negative (Negative); Red Blood Cells-Urine 0 SEEN /hpf (0-5); Specific Gravity, Urine 1.015 (1.002-1.030); Squamous Epithelial Cells - UA 0 SEEN /hpf (5-10); Urine Bilirubin Dipstick Negative (Negative); Urine Clarity Clear (Clear); Urine Urobilinogen Normal (Normal); White Blood Cells 0 SEEN /hpf (0-5)
== END ==
PROVIDERS: PCP Family Medicine; Visit Provider Family Medicine
DX: D75.89 Other specified diseases of blood and blood-forming organs (principal); I10 Essential (primary) hypertension; E78.5 Hyperlipidemia, unspecified; R00.2 Palpitations
CPT/HCPCS: 36415; 80053; 80061; 81001; 82607; 82746; 83735; 84443; 85025

== ENCOUNTER → 2019-11-09 13:20 | Outpatient (CLI) | payer MEDICARE, SELFPAY ==
--- NOTE | 2019-11-09 13:27 | BD_ITS ---
STUDY: DUAL ENERGY X-RAY ABSORPTIOMETRY / DXA REASON FOR EXAM: Female, 69 years old. 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 COMPARISON: Comparison is made with prior examination dated 09/12/2009. FINDINGS: Lumbar Spine (L1-L4): g/cm2 (0.987) / T-score (-1.6) / Z-score (0.1) Findings are suggestive of osteopenia with a moderate fracture risk. Left Femur Total: g/cm2 (0.887) / T-score (-1.0) / Z-score (0.5) Left Femoral Neck: g/cm2 (0.880) / T-score (-1.1) / Z-score (0.5) Right Femur Total: g/cm2 (0.909) / T-score (-0.8) / Z-score (0.6) Right Femoral Neck: g/cm2 (0.899) / T-score (-1.0) / Z-score (0.7) The T-Scores on the most recent prior examination were: Lumbar Spine (L1-L4): There has been worsening of bone density since the previous examination. Left Femur Total: which represents a worsening of 8.5%. Right Femur Total: which represents a worsening of 2%. BD/Dexa Bone Density Study IMPRESSION: The patient is considered osteopenic as outlined below according to World Anthony Organization (WHO) criteria with a moderate fracture risk. There has been worsening of bone density since the previous examination. Reference Information: The T-score is the number of standard deviations above or below the standard which is normal for young adults at their peak bone mineral density. The World Health Organization (WHO) interprets the T-scores as follows: Above -1 Normal bone density Between -1 and -2.5 Osteopenia Equal to / or below -2.5 Osteoporosis As a practical clinical guideline, osteopenia may be graded as follows: Mild -1 through -1.5 Moderate -1.6 through -2.0 Severe -2.1 through -2.4 The Z-score is the number of standard deviations above or below age-matched controls. A Z-score of less than -1.5 would be considered abnormal. References: 1. NIH Osteoporosis and Related Bone Diseases http://www.osteo.org 2. International Society for Clinical Densitometry http://www.iscd.org 3. National Osteoporosis Foundation http://www.nof.org Electronically Signed: Lloyd Khan, at 13:01 EDT , Service support ,
== END ==
PROVIDERS: PCP Family Medicine; Referring Provider Family Medicine; Visit Provider Family Medicine
DX: M85.80 Other specified disorders of bone density and structure, unspecified site (principal); Z78.0 Asymptomatic menopausal state
CPT/HCPCS: 77080

== ENCOUNTER → 2019-12-01 11:11 | Outpatient (CLI) | payer MEDICARE, SELFPAY ==
--- NOTE | 2019-12-01 11:16 | CT_ITS ---
STUDY: CT ABDOMEN AND PELVIS WITH CONTRAST REASON FOR EXAM: Female, 69 years old. PYELONEPHRITIS? RIGHT FLANK PAIN/BURNING RADIATION DOSAGE (If Supplied By Facility): CTDIvol = ( 12.39 ) mGy, DLP = ( 456.25 ) mGycm TECHNIQUE: Transaxial images were obtained from the dome of the diaphragm to the symphysis pubis without oral contrast. Oral and amp; IV Gastrografin and amp; 75mL Isovue-300 was administered. Sagittal and coronal images were reconstructed. Individualized dose optimization techniques were used for this CT. COMPARISON: None. FINDINGS: The visualized lung bases are unremarkable. The visualized portions of the heart are within normal limits. Normal liver. Minimally dilated central intrahepatic biliary ducts. Dilated common bile duct with transverse dimension of 6 mm. Normal spleen. Normal pancreas. Normal bilateral adrenal glands. Normal right kidney. Normal left kidney. Normal visualized stomach. Normal small intestine. Normal colon. The appendix is visualized and appears normal. There is diffuse atherosclerotic calcification of the abdominal aorta, without a demonstrated aneurysm. Normal inferior vena cava. Normal retroperitoneum. Normal urinary bladder. Normal abdominal wall. There are diffuse degenerative changes of the visualized lumbar spine. CT/Abdomen/Pelvis WITH Contrast IMPRESSION: Minimally dilated intrahepatic bile ducts and common bile duct. Electronically Signed: Lloyd Khan, at 13:44 EDT , Service support ,
[2019-12-01 13:21] LABS: CREATININE FINGERSTICK < 0.6 mg/dL (0.55-1.02); EGFR FINGERSTICK > 60.0000 mL/min (>60)
== END ==
PROVIDERS: PCP Family Medicine; Referring Provider Family Medicine; Visit Provider Family Medicine
DX: N10 Acute pyelonephritis (principal)
CPT/HCPCS: 74177; 87086; 87088; Q9967; A4216

== ENCOUNTER → 2020-01-04 09:26 | Outpatient (CLI) | payer MEDICARE, SELFPAY ==
[2020-01-04 12:12] LABS: Absolute Lymphocyte Count 1.48 X10^3/uL (0.83-4.51); Absolute Neutrophil Count 2.4 X10^3/uL (2.0-7.7); Basophil# 0.01 X10^3/uL; Basophil% 0.2 % (0-1); Eosinophil# 0.04 X10^3/uL; Eosinophils% 0.9 % (0-5); Hematocrit 38.1 % (37-47); Hemoglobin 12.6 g/dL (12.0-15.0); Lymphocyte # 1.48 X10^3/ul (4.0); Mean Corp Hgb Conc 33.1 g/dL (32-36); Mean Corpuscular Hgb 34.5 pg (27.0-32.0); Mean Corpuscular Volume 104.4 fL (81-99); Mean Platelet Vol. 12.1 fl (6.2-12.0); Monocyte# 0.53 X10^3/uL; Monocyte% 11.8 % (0-10); NRBC Flagged by Analyzer 0 % (0-5); Neutrophil # 2.42 X10^3/uL (2.7-7.7); Neutrophil % 53.9 % (47-70); Platelet Count 179 K/mm3 (150-450); RBC Distribution Width CV 12.3 % (11.6-14.6); RBC Distribution Width SD 47.6 fl (35.1-43.9); Red Blood Count 3.65 M/mm3 (4.2-5.4); White Blood Count 4.5 K/mm3 (4.4-11.0)
[2020-01-04 12:24] LABS: AST(SGOT) 26 U/L (15-37); Alanine Aminotransfer ALT/SGPT 27 U/L (13-56); Albumin, Serum 3.9 g/dL (3.2-5.0); Alkaline Phosphatase 78 U/L (45-117); Anion Gap 4 (5-15); BUN 17 mg/dL (7-18); BUN/Creat Ratio 21.3 RATIO (10-20); Calcium,Total 9.1 mg/dL (8.5-10.1); Chloride 102 mmol/L (98-107); Cholesterol 181 mg/dL (200); EST Glomerular Filtration Rate 76 mL/min (>60); Est Glom Filt Rate - Afr Amer 92 mL/min (>60); Globulin 3.8 g/dL (2.2-4.2); Glucose 92 mg/dL (74-106); High Density Lipoprotein 85 mg/dL; Magnesium 2.4 mg/dL (1.6-2.6); Potassium 3.3 mmol/L (3.5-5.1); Protein, Total 7.7 g/dL (6.4-8.2); Sodium Level 140 mmol/L (136-145); Triglycerides 61 mg/dL; Very Low Density Lipoprotein 12 mg/dL (5-40)
== END ==
PROVIDERS: PCP Family Medicine; Referring Provider Family Medicine; Visit Provider Family Medicine
DX: I10 Essential (primary) hypertension (principal); E78.5 Hyperlipidemia, unspecified; R00.2 Palpitations
CPT/HCPCS: 36415; 80053; 80061; 83735; 85025

== ENCOUNTER → 2020-01-19 10:16 | Outpatient (CLI) | payer MEDICARE, SELFPAY ==
[2020-01-19 13:02] LABS: Potassium 3.7 mmol/L (3.5-5.1)
== END ==
PROVIDERS: PCP Family Medicine; Referring Provider Family Medicine; Visit Provider Family Medicine
DX: E87.6 Hypokalemia (principal)
CPT/HCPCS: 36415; 84132

== ENCOUNTER 2020-06-23 17:54 | Emergency (ER) | payer MEDICARE, SELFPAY ==
[2020-06-23] VITALS (12 sets, daily range): BP systolic 155–189; BP diastolic 76–89; PULSE 60–83; RESP 11–18; TEMP 36.3–36.9; O2SAT 98–100; BMI 19.8
--- NOTE | 2020-06-23 18:04 | CT_ITS ---
We are attempting to reach an attending provider to discuss findings. An addendum with communication details will be sent when the communication is complete. EXAMINATION : Head CT w/out contrast HISTORY : stroke COMPARISON : None. TECHNIQUE : Multiple contiguous axial images were obtained from the skull base to the vertex without intravenous contrast. A radiation dose optimization technique was used for this scan. FINDINGS : The ventricles and sulci are normal in size. There is no evidence for acute intracranial hemorrhage, mass effect, or midline shift. There is no extra-axial fluid collection. There is normal zepeda-white differentiation, without CT evidence of acute ischemia or infarct. The skull base and calvarium are unremarkable. The orbits are unremarkable. The paranasal sinuses are clear. The mastoid air cells are well-aerated. The soft tissues are unremarkable. CT/STROKE Brain/Head without Cont IMPRESSION: No acute intracranial abnormality. Electronically Signed: Bertram Scott MD at 18:19 EDT Tel , Service support ,
--- NOTE | 2020-06-23 18:04 | EKG12_ITS ---
Test Reason : STROKE Blood Pressure : / mmHG Vent. Rate : 066 BPM Atrial Rate : 066 BPM P-R Int : 184 ms QRS Dur : 088 ms QT Int : 424 ms P-R-T Axes : 064 001 053 degrees QTc Int : 444 ms Normal sinus rhythm Normal ECG Confirmed by ERIKA LAWTON, JALEEL ([id number]), jet operator YADIRA IRBY ([id number]) on 06/28/2020 10:39:16 AM Referred By: DC Confirmed By:JALEEL JAMES MD
--- NOTE | 2020-06-23 18:19 | ED.RN ---
NO OLD EKGS IN MUSE
[2020-06-23 18:31] LABS: Bedside Glucose 116 mg/dL (70-110)
--- NOTE | 2020-06-23 18:50 | RAD_ITS ---
STUDY: X-RAY CHEST REASON FOR EXAM: Female, 70 years old. Neuro deficit, acute, stroke suspected TECHNIQUE: Single AP portable view of the chest. COMPARISON: April 20, 2018 FINDINGS: There is hyperinflation of the lungs consistent with chronic obstructive lung disease (COPD). There is no demonstrated pleural abnormality. Normal size heart. Normal mediastinum and shameka. Normal visualized pulmonary arteries. There is atherosclerotic calcification of the aortic arch with tortuosity. Normal visualized thoracic spine. Stable osseous structures. Healed fracture deformity at the tip of the right clavicle. There is no demonstrated abnormality of the visualized soft tissue structures of the upper abdomen. RAD/Chest 1 View IMPRESSION: COPD. Electronically Signed: Erick Truong MD at 19:39 EDT , Service support ,
--- NOTE | 2020-06-23 18:56 | ED.VISSUMM ---
- ER Visit Summary Date of Service: 06/23/20 Chief Complaint: Weakness History of Present Illness: The patient is a 70 F who presents with sudden onset weakness that started around 4:30 PM today. She never had this before. She feels like the right side of her body was injected with Novocain. She is uncoordinated on that side. Incidentally, she noticed her stove was burning for several hours. The burner was on low. Physical Examination: Hypertensive but otherwise vitals normal. Patient alert and oriented. NIH stroke scale is 4, one-point change in sensation, 2 points ataxia, one-point very mild dysarthria. Otherwise exam unremarkable. Test Results: EKG showed sinus rhythm at a rate of 66. Laboratories are pending. CT brain was negative. Chest x-ray pending. Emergency Department Course and Treatment: Patient was seen immediately on arrival. She had findings concerning for acute stroke and a stroke team was activated. Tele neurology evaluated the patient. Neurology and myself advised TPA. Risks were discussed with the patient. Questions were answered. We cannot identify any contraindications. Her repeat blood pressure was in the 170s. Patient was agreeable to TPA. I do not believe the patient has symptoms of carbon monoxide poisoning. Vital signs are reassuring. The story is not typically consistent with carbon monoxide poisoning. She had her cooking of on for several hours on low and her house is otherwise well ventilated. I felt her symptoms were more likely secondary to stroke and did not want to delay treatment. Carbon monoxide level was just over 5. This may be a little high for a non-smoker, but I do not believe it would be high enough to cause neurologic symptoms such as the patient was experiencing. Patient was accepted to the [facility] ER by Dr. Ramirez. And patient is being transferred. Treatment Plan: As above Disposition: Transfer Impression: Acute ischemic stroke This note was generated with [employer] dictation software. It may contain incorrect words, spelling, and punctuation that were not noted in review of the chart prior to signing ED Disposition - Plan for ED Patient: Disposition: [facility] Referrals: Mikel Tate MD [Primary Care Provider] -
[2020-06-23 19:08] LABS: Anion Gap 6 (5-15); BUN 24 mg/dL (7-18); BUN/Creat Ratio 28.5 RATIO (10-20); Calcium,Total 8.9 mg/dL (8.5-10.1); Chloride 103 mmol/L (98-107); Creatinine, Serum 0.84 mg/dL (0.55-1.02); EST Glomerular Filtration Rate 71 mL/min (>60); Est Glom Filt Rate - Afr Amer 86 mL/min (>60); Glucose 102 mg/dL (74-106); Potassium 3.3 mmol/L (3.5-5.1); Sodium Level 136 mmol/L (136-145)
[2020-06-23 19:16] LABS: Carboxyhemoglobin Frac (CO) 5.2 % (0.0-1.5)
[2020-06-23] MEDS: 0.9% Normal Saline 1,000 ML 100 ML IV (19:17)
[2020-06-23 19:19] LABS: Absolute Lymphocyte Count 1.22 X10^3/uL (0.83-4.51); Absolute Neutrophil Count 3.3 X10^3/uL (2.0-7.7); Basophil# 0.02 X10^3/uL; Basophil% 0.4 % (0-1); Eosinophil# 0.02 X10^3/uL; Eosinophils% 0.4 % (0-5); Hematocrit 33.2 % (37-47); Hemoglobin 11.3 g/dL (12.0-15.0); Lymphocyte # 1.22 X10^3/ul (4.0); Lymphocyte % 23.7 % (19-41); Mean Corpuscular Hgb 34.6 pg (27.0-32.0); Mean Corpuscular Volume 101.5 fL (81-99); Mean Platelet Vol. 11.1 fl (6.2-12.0); Monocyte# 0.55 X10^3/uL; Monocyte% 10.7 % (0-10); NRBC Flagged by Analyzer 0 % (0-5); Neutrophil # 3.32 X10^3/uL (2.7-7.7); Neutrophil % 64.6 % (47-70); Platelet Count 158 K/mm3 (150-450); RBC Distribution Width CV 12.3 % (11.6-14.6); RBC Distribution Width SD 46.4 fl (35.1-43.9); Red Blood Count 3.27 M/mm3 (4.2-5.4); White Blood Count 5.1 K/mm3 (4.4-11.0)
--- NOTE | 2020-06-23 19:32 | ED.RN ---
PUNEET CARE AT BEDSIDE
[2020-06-23 19:33] LABS: International Normalized Ratio 1.1; Prothrombin Time (Protime)PT. 13.2 SECONDS (11.7-14.9)
[2020-06-23 20:05] LABS: Partial Thromboplast Time 27.8 Seconds (24.1-36.2)
== END 2020-06-23 19:41 | disposition short-term general hospital (02) ==
PROVIDERS: Emergency Provider Emergency Medicine; PCP Family Medicine
DX: I63.9 Cerebral infarction, unspecified (principal); R29.704 NIHSS score 4; I10 Essential (primary) hypertension; Z79.899 Other long term (current) drug therapy
CPT/HCPCS: 70450; 71045; 80048; 82375; 82962; 84484; 85025; 85610; 85730; 87426; 93005; 96374; 99285; J2997; J7030; A4216

== ENCOUNTER → 2020-07-04 12:59 | Outpatient (CLI) | payer MEDICARE, SELFPAY ==
[2020-06-23 18:19] VITALS: BMI 19.8
--- NOTE | 2020-07-04 13:03 | ECHOD_ITS ---
Reason For Study: TIA/CVA Procedure This was a 2D Doppler, Color Flow transthoracic echocardiogram. Bubble Study Performed. The exam was of adequate technical quality. Exam performed in department. Left Ventricle Normal LV size. Left ventricular systolic function is normal. The estimated ejection fraction is 65 %. No regional wall motion abnormalities noted. Right Ventricle Normal RV size. Normal systolic function. Atria The left atrium is mildly enlarged. The right atrium is mildly enlarged. No doppler evidence for ASD. Bubble contrast study negative for right to left interatrial shunt. Mitral Valve There is no mitral annular calcification. Normal mitral valve. Trivial mitral valve insufficiency. Tricuspid Valve Normal tricuspid valve. Mild to moderate (1-2+) tricuspid valve insufficiency. Right ventricular systolic pressure estimated to be 26 mmHg. Aortic Valve Trisinus/trileaflet aortic valve. Normal aortic valve. Mild (1+) aortic valve insufficiency. Pulmonic Valve The pulmonic valve is not well visualized. Great Vessels Normal sized aortic root. Pericardium/Pleural No pericardial effusion. Medication 22 gauge I.V. with prn adaptor inserted into right arm. Performed a rapid injection of agitated mix of 9 cc saline and 1cc air to assess for atrial septal defect. MMode/2D Measurements & Calculations LVIDd: 3.9 cm IVSd: 0.82 cm Ao root diam: 3.9 cm LVIDs: 2.1 cm LVPWd: 0.91 cm LA dimension: 3.0 cm RVDd: 3.4 cm FS: 45.7 % LAV(MOD-bp): 29.1 ml LA A4 area: 13.2 cm2 RA A4 area: 13.0 cm2 LAV(MOD-bp) Indexed: 20.4 ml/m2 LAV(MOD-sp2): 27.6 ml LAV(MOD-sp4): 30.4 ml Time Measurements MV dec time: 0.22 sec Doppler Measurements & Calculations MV E max devon: 94.4 cm/sec Lat Peak E' Devon: 7.2 cm/sec Med Peak E' Devon: 8.4 cm/sec MV A max devon: 83.0 cm/sec E/E' lat: 13.2 E/E' med: 11.2 MV E/A: 1.1 MV V2 max: 84.1 cm/sec MV P1/2t max devon: 84.1 cm/sec Ao V2 max: 111.0 cm/sec MV max P.8 mmHg MV P1/2t: 120.0 msec Ao max P.9 mmHg MV V2 mean: 51.7 cm/sec MV dec slope: 205.3 cm/sec2 MV mean P.2 mmHg MV V2 VTI: 32.8 cm MVA(P1/2t): 1.8 cm2 AI max devon: 434.8 cm/sec LV V1 max: 108.9 cm/sec PA V2 max: 88.6 cm/sec AI max P.6 mmHg LV V1 max P.7 mmHg AI dec slope: 162.5 cm/sec2 AI P1/2t: 783.9 msec TR max devon: 239.3 cm/sec TR max P.9 mmHg ECHO/Echo Complete Interpretation Summary Left ventricular systolic function is normal. The estimated ejection fraction is 65 %. The left atrium is mildly enlarged. The right atrium is mildly enlarged. Trivial mitral valve insufficiency. Mild to moderate (1-2+) tricuspid valve insufficiency. Mild (1+) aortic valve insufficiency. Right ventricular systolic pressure estimated to be 26 mmHg. Transmitral diastolic flow velocities suggest diastolic dysfunction (pseudonorm al pattern). Bubble contrast study negative for right to left interatrial shunt. Ordering Physician: Mikel Tate Referring Physician: Mikel Tate Performed By: Berto Tabares RCS
== END ==
PROVIDERS: PCP Family Medicine; Visit Provider Family Medicine
DX: I08.2 Rheumatic disorders of both aortic and tricuspid valves (principal); Z86.73 Personal history of transient ischemic attack (TIA), and cerebral infarction without residual deficits
CPT/HCPCS: 93306; A4216

== ENCOUNTER → 2020-10-26 11:29 | Outpatient (CLI) | payer MEDICARE, SELFPAY ==
[2020-06-23 18:19] VITALS: BMI 19.8
[2020-10-26 15:22] LABS: Vitamin B12 638 pg/mL (211-911); Vitamin D,25 Hydroxy 127.1 ng/mL
[2020-10-26 16:00] LABS: ALB/GLOB Ratio 1.3 RATIO (0.9-2.4); AST(SGOT) 34 U/L (15-37); Alanine Aminotransfer ALT/SGPT 34 U/L (13-56); Alkaline Phosphatase 57 U/L (45-117); Anion Gap 8 (5-15); BUN 13 mg/dL (7-18); BUN/Creat Ratio 15.1 RATIO (10-20); Chloride 105 mmol/L (98-107); Cholesterol 131 mg/dL (200); Creatinine, Serum 0.86 mg/dL (0.55-1.02); EST Glomerular Filtration Rate 69 mL/min (>60); Est Glom Filt Rate - Afr Amer 84 mL/min (>60); Glucose 89 mg/dL (74-106); High Density Lipoprotein 78 mg/dL; Magnesium 2.3 mg/dL (1.6-2.6); Potassium 3.8 mmol/L (3.5-5.1); Sodium Level 140 mmol/L (136-145); Triglycerides 36 mg/dL; Very Low Density Lipoprotein 7 mg/dL (5-40)
[2020-10-26 16:01] LABS: Folates, (Folic Acid) > 20.00 ng/mL (3.1-55.4)
[2020-10-26 16:23] LABS: Absolute Lymphocyte Count 1.02 X10^3/uL (0.83-4.51); Absolute Neutrophil Count 2.5 X10^3/uL (2.0-7.7); Basophil# 0.02 X10^3/uL; Basophil% 0.5 % (0-1); Eosinophil# 0.06 X10^3/uL; Eosinophils% 1.5 % (0-5); Hematocrit 34.7 % (37-47); Hemoglobin 11.2 g/dL (12.0-15.0); Lymphocyte # 1.02 X10^3/ul (0.83-4.51); Lymphocyte % 25.1 % (19-41); Mean Corp Hgb Conc 32.3 g/dL (32-36); Mean Corpuscular Hgb 33.7 pg (27.0-32.0); Mean Corpuscular Volume 104.5 fL (81-99); Mean Platelet Vol. 11.8 fl (6.2-12.0); Monocyte% 12.3 % (0-10); NRBC Flagged by Analyzer 0 % (0-5); Neutrophil # 2.46 X10^3/uL (2.7-7.7); Neutrophil % 60.6 % (47-70); Platelet Count 150 K/mm3 (150-450); RBC Distribution Width CV 12.8 % (11.6-14.6); RBC Distribution Width SD 49.1 fl (35.1-43.9); Red Blood Count 3.32 M/mm3 (4.2-5.4); White Blood Count 4.1 K/mm3 (4.4-11.0)
== END ==
PROVIDERS: PCP Family Medicine; Visit Provider Family Medicine
DX: I10 Essential (primary) hypertension (principal); E78.5 Hyperlipidemia, unspecified; D75.89 Other specified diseases of blood and blood-forming organs; M85.80 Other specified disorders of bone density and structure, unspecified site; R00.2 Palpitations
CPT/HCPCS: 36415; 80053; 80061; 82306; 82607; 82746; 83735; 84443; 85025

== ENCOUNTER 2021-05-01 11:33 | Outpatient (CLI) | payer MEDICARE, SELFPAY ==
[2021-05-01 15:25] LABS: Vitamin B12 676 pg/mL (211-911); Vitamin D,25 Hydroxy 76.5 ng/mL
[2021-05-01 15:34] LABS: Absolute Lymphocyte Count 1.26 X10^3/uL (0.83-4.51); Absolute Neutrophil Count 2.5 X10^3/uL (2.0-7.7); Basophil# 0.02 X10^3/uL; Basophil% 0.5 % (0-1); Eosinophil# 0.03 X10^3/uL; Eosinophils% 0.7 % (0-5); Hemoglobin 12.4 g/dL (12.0-15.0); Lymphocyte # 1.26 X10^3/ul (0.83-4.51); Lymphocyte % 30.1 % (19-41); Mean Corp Hgb Conc 34.4 g/dL (32-36); Mean Corpuscular Volume 101.7 fL (81-99); Monocyte# 0.35 X10^3/uL; Monocyte% 8.4 % (0-10); NRBC Flagged by Analyzer 0 % (0-5); Neutrophil # 2.52 X10^3/uL (2.7-7.7); Neutrophil % 60.1 % (47-70); Platelet Count 179 K/mm3 (150-450); RBC Distribution Width CV 12.7 % (11.6-14.6); RBC Distribution Width SD 47.3 fl (35.1-43.9); Red Blood Count 3.54 M/mm3 (4.2-5.4); White Blood Count 4.2 K/mm3 (4.4-11.0)
[2021-05-01 16:20] LABS: ALB/GLOB Ratio 1.1 RATIO (0.9-2.4); AST(SGOT) 35 U/L (15-37); Alanine Aminotransfer ALT/SGPT 30 U/L (13-56); Alkaline Phosphatase 75 U/L (45-117); Anion Gap 8 (5-15); BUN 16 mg/dL (7-18); BUN/Creat Ratio 18.5 RATIO (10-20); Calcium,Total 9.4 mg/dL (8.5-10.1); Chloride 102 mmol/L (98-107); Cholesterol 154 mg/dL (200); Creatinine, Serum 0.86 mg/dL (0.55-1.02); EST Glomerular Filtration Rate 69 mL/min (>60); Est Glom Filt Rate - Afr Amer 83 mL/min (>60); Ferritin 49 ng/mL (8-252); Globulin 3.6 g/dL (2.2-4.2); Glucose 84 mg/dL (74-106); High Density Lipoprotein 88 mg/dL; Iron 105 ug/dL (50-170); Iron Binding Capacity,Total 390 ug/dL (250-450); Potassium 3.6 mmol/L (3.5-5.1); Protein, Total 7.6 g/dL (6.4-8.2); Sodium Level 139 mmol/L (136-145); Triglycerides 61 mg/dL; Very Low Density Lipoprotein 12 mg/dL (5-40)
== END 2021-05-01 23:59 | disposition home or self-care (01) ==
LOC: MFPLAB 11:35
PROVIDERS: PCP Family Medicine; Referring Provider Family Medicine; Visit Provider Family Medicine
DX: M85.80 Other specified disorders of bone density and structure, unspecified site (principal); D53.9 Nutritional anemia, unspecified; E78.5 Hyperlipidemia, unspecified
CPT/HCPCS: 36415; 80053; 80061; 82306; 82607; 82728; 82746; 83540; 83550; 85025

== ENCOUNTER 2021-05-08 09:36 | Outpatient (CLI) | payer MEDICARE, SELFPAY ==
[2021-05-08 12:56] LABS: AST(SGOT) 30 U/L (15-37); Alanine Aminotransfer ALT/SGPT 24 U/L (13-56); Albumin, Serum 3.8 g/dL (3.2-5.0); Alkaline Phosphatase 67 U/L (45-117); Bilirubin, Direct 0.38 mg/dL (0.00-0.30); Protein, Total 6.8 g/dL (6.4-8.2)
== END 2021-05-08 23:59 | disposition home or self-care (01) ==
LOC: MFPLAB 09:41
PROVIDERS: PCP Family Medicine; Referring Provider Family Medicine; Visit Provider Family Medicine
DX: E80.6 Other disorders of bilirubin metabolism (principal)
CPT/HCPCS: 36415; 80076

== ENCOUNTER 2021-05-21 10:19 | Outpatient (CLI) | payer MEDICARE, SELFPAY ==
[2021-05-21 15:42] LABS: AST(SGOT) 32 U/L (15-37); Alanine Aminotransfer ALT/SGPT 25 U/L (13-56); Albumin, Serum 3.9 g/dL (3.2-5.0); Alkaline Phosphatase 64 U/L (45-117); Bilirubin, Direct 0.39 mg/dL (0.00-0.30); Globulin 3.4 g/dL (2.2-4.2); Protein, Total 7.3 g/dL (6.4-8.2)
== END 2021-05-21 23:59 | disposition home or self-care (01) ==
LOC: MFPLAB 10:22
PROVIDERS: PCP Family Medicine; Visit Provider Family Medicine
DX: E80.6 Other disorders of bilirubin metabolism (principal)
CPT/HCPCS: 36415; 80076

== ENCOUNTER 2021-06-14 16:26 | Outpatient (CLI) | payer MEDICARE, SELFPAY ==
[2021-06-14 18:38] LABS: AST(SGOT) 33 U/L (15-37); Alanine Aminotransfer ALT/SGPT 28 U/L (13-56); Albumin, Serum 4.3 g/dL (3.2-5.0); Alkaline Phosphatase 66 U/L (45-117); Bilirubin, Direct 0.45 mg/dL (0.00-0.30); Globulin 2.9 g/dL (2.2-4.2); Protein, Total 7.2 g/dL (6.4-8.2)
== END 2021-06-14 23:59 | disposition home or self-care (01) ==
LOC: MFPLAB 16:26
PROVIDERS: PCP Family Medicine; Referring Provider Family Medicine; Visit Provider Family Medicine
DX: E80.6 Other disorders of bilirubin metabolism (principal)
CPT/HCPCS: 36415; 80076

== ENCOUNTER → 2021-07-05 | Outpatient (CLI) | payer MEDICARE, SELFPAY ==
--- NOTE | 2021-07-05 13:34 | CT_ITS ---
INDICATION: PAINLESS JAUNDICE EXAMINATION: CT ABDOMEN AND PELVIS WITH CONTRAST - CT Abdomen And Pelvis W/ Contrast Injection TECHNIQUE: Helically acquired images were obtained of the abdomen and pelvis following IV contrast. A radiation dose optimization technique was used for this scan. IV Contrast dosage and agent: 75 mL of ISOVUE 300. Oral contrast: Yes. COMPARISON: 12/01/2019. FINDINGS: LOWER CHEST: Lung bases are clear. No cardiomegaly or pericardial effusion. LIVER: Homogeneous. No focal mass. GALLBLADDER AND BILIARY TREE: No calcified gallstones. Mild prominence of the wall of the gallbladder is visualized however measuring less than 3 mm. Prominence of the common bile duct is visualized measuring up to 10 mm in the central segment with irregularity in the wall visualized best on coronal series 601 image 33. Intrahepatic biliary dilatation is seen no evidence of obstructing stone is visualized however there is subtle soft tissue density visualized best seen on axial series 2 image 36. PANCREAS: No focal cystic or solid mass. SPLEEN: Normal size without focal cystic or solid mass. ADRENAL GLANDS: No nodules. KIDNEYS AND URETERS: Normal renal size and position. No hydronephrosis. PERITONEUM: No ascites or free air. No other fluid collection. BOWEL: Abundance of stool is visualized in the large bowel.. No stomach or bowel distension. No focal inflammatory change. LYMPH NODES: No enlarged mesenteric or retroperitoneal lymph nodes. VESSELS: Aorta is non-dilated. URINARY BLADDER: Unremarkable. REPRODUCTIVE ORGANS: No pelvic masses. ABDOMINAL WALL: No discrete abdominal or pelvic wall hernia. BONES: Degenerative bone changes seen. No lytic or blastic abnormality. CT/Abdomen/Pelvis WITH Contrast IMPRESSION: Intra and extrahepatic biliary dilatation is seen, subtle soft tissue density visualized in the central common bile duct at the level of the ampulla would recommend clinical correlation and if clinically indicated further evaluation with ERCP. Note is made that this demonstrates no significant progression in comparison to the prior study obtained on 12/01/2019. Electronically Signed: Delonte Schroeder MD at 16:36 EDT Reading Location ID and State: [facility] / ID Tel , Service support ,
[2021-07-05 13:51] LABS: CREATININE FINGERSTICK < 0.6 mg/dL (0.55-1.02); EGFR FINGERSTICK > 60.0000 mL/min (>60)
== END | disposition home or self-care (01) ==
LOC: CT 13:27
PROVIDERS: PCP Family Medicine; Referring Provider Family Medicine; Visit Provider Family Medicine
DX: R17 Unspecified jaundice (principal)
CPT/HCPCS: 74177; Q9967

== ENCOUNTER 2021-07-13 09:35 | Day surgery (SDC) | payer MEDICARE, SELFPAY ==
--- NOTE | 2021-07-12 09:27 | EKG12_ITS ---
Test Reason : PRE-OP Blood Pressure : / mmHG Vent. Rate : 054 BPM Atrial Rate : 054 BPM P-R Int : 198 ms QRS Dur : 084 ms QT Int : 440 ms P-R-T Axes : -16 -07 054 degrees QTc Int : 417 ms Sinus bradycardia Inferior FL, age undetermined, cannot be excluded Confirmed by JORDAN LAWTON, ROBIN ([id number]), health editor YDAIRA IRBY ([id number]) on 07/13/2021 10:32:48 AM Referred By: Antwon Brewer Confirmed By:ROBIN ORTEGA MD
[2021-07-13 10:03] VITALS: BP 169/78; PULSE 54; RESP 12; TEMP 36.1; O2SAT 100; BMI 18.5
[2021-07-13] MEDS: Lactated Ringers 1,000 ML 15 ML IV (10:14)
--- NOTE | 2021-07-13 11:13 | RAD_ITS ---
STUDY: ERCP. REASON FOR EXAM: Female, 71 years old. PAIN FLUOROSCOPY TIME (if supplied): ( ) minutes/seconds. 2 images were submitted. TECHNIQUE: Attempted ERCP. COMPARISON: None. FINDINGS: Attempted ERCP. RAD/ERCP Biliary Only IMPRESSION: Attempted ERCP. Electronically Signed: Lloyd Khan MD at 10:09 EDT ,
--- NOTE | 2021-07-13 11:14 | PCM.HP.BLA ---
History and Physical Date of Admission: 07/13/21 Intake Vital Signs 07/09/21 15:00 Height 5 ft 2 in Weight: 100 lb BMI 18.3 BP 120/68 Blood Pressure Location Rt brachial Position Sitting Respiration 18 Intake Visit Reasons: ERCP/Painless Jaundice/ok per TC Chief Complaint: ercp Lead Trainer Required: No Is patient in pain?: No Allergies Sulfa (Sulfonamide Antibiotics) Allergy (Verified 07/09/21 15:01) Hives TAPE Allergy (Uncoded 07/09/21 15:01) Rash Medications amlodipine 5 mg tablet tablet PO 07/09/21 [History Confirmed 07/09/21] aspirin 81 mg tablet,delayed release 81 mg PO DAILY 07/09/21 [History Confirmed 07/09/21] calcium carbonate 600 mg calcium (1,500 mg) tablet 600 mg PO DAILY 07/09/21 [History Confirmed 07/09/21] cranberry 400 mg capsule 400 mg PO DAILY 07/09/21 [History Confirmed 07/09/21] hydrochlorothiazide 25 mg tablet tablet PO 07/09/21 [History Confirmed 07/09/21] lisinopril 20 mg tablet tablet PO 07/09/21 [History Confirmed 07/09/21] metoprolol tartrate 50 mg tablet tablet PO 07/09/21 [History Confirmed 07/09/21] rosuvastatin 40 mg tablet tablet PO 07/09/21 [History Confirmed 07/09/21] [facility] Medical History (Updated 07/10/21 @ 13:[address] Antwon Brewer MD) Elevated bilirubin HTN (hypertension) Surgical History (Updated 07/09/21 @ 14:50 by Shey Berrios) H/O section S/P breast biopsy Family History (Updated 07/09/21 @ 14:59 by Shey Berrios) Father Colon cancer Hypertension Mother Hypertension Social History (Updated 07/09/21 @ 15:00 by Shey Berrios) Smoking Status: Never smoker alcohol intake: current HPI HPI HPI: TRACIE ARREGUIN, is a 71 F who presents to the office today for elevated bilirubin. The patient has been having serial bilirubin studies for the last few months and they have been slowly becoming more elevated. Patient is asymptomatic with no abdominal pain. Patient does not have any nausea or vomiting. ROS General General: No weight change, appetite, fatigue, colon cancer, breast cancer or weakness HEENT HEENT: No difficulty swallowing, eye injury, eye surgery, swollen glands or hoarseness Endo Endocrine: No thyroid disease, diabetes mellitus, thyroid cancer, Hair loss, heat intolerance or cold intolerance Skin Skin: No rash or changing moles Breast Breast: No left breast lump, right breast lump, nipple discharge, breast pain, abnormal mammogram, abnormal US or breast enlargement Musc Musculoskeletal: No back problems, arthritis, rheumatoid arthritis, gout or joint pain Cardio Cardiovascular: Yes high blood pressure; No murmur, pacemaker, heart disease, atrial fibrillation, heart attack, heart stent, palpitations, shortness of breat with exertion or chest pain Psych Psychiatric: No depression, anxiety or hearing voices Resp Respiratory: No shortness of breath, No sleep apnea, No cough, No COPD, No asthma, No emphysema and No wheezing Gastro Gastrointestinal: Yes abdominal pain, Yes nausea or vomiting, No diarrhea, No constipation, No blood in stool, No acid reflux, No hemorrhoids, No ulcers, No gallbladder problem and No black,tarry stools Fritz Hematologic: No blood thinners, No blood disorders, No bleeding, No anemia and No blood clots Neuro Neurologic: No system reviewed and no additional complaints, except as documented, No as per HPI, No abnormal gait, No abnormal hearing, No abnormal movements, No abnormal speech, No behavioral changes, No burning sensations, No confusion, No convulsions, No disequilibrium, No dizziness, No localized weakness, No frequent falls, No headache(s), No lack of coordination, No loss of vision, No memory loss, Yes numbness, No other visual disturbances, No radicular pain, No restless legs, No sensory deficit, No syncope, Yes tingling, No tremor(s), No weakness and No other Exam Const General: cooperative Orientation: alert and oriented x3 HENMT Head: normal to inspection Neck Neck: normal visual inspection and full ROM Chest Chest palpation & inspection: normal inspection of the chest Resp Effort & Inspection: normal respiratory effort Auscultation: clear to auscultation bilaterally Cardio Rate: regular rate Rhythm: regular rhythm GI Inspection: non-distended Palpation: soft and nontender Skin General: no rashes or lesions noted Neuro General: patient alert and patient oriented x3 Extrem General: full ROM Psych Appearance: grossly normal Mental Status: mental status grossly normal Assessment and Plan Assessment and Plan (1) Elevated bilirubin: Status: Acute (2) Common bile duct dilation: Status: Acute Orders: Orders: ERCP Biliary Only Today R17 Plan - Dr. Antwon Brewer MD: The patient had a CT scan which showed dilated common bile duct both intra and extrahepatic. Patient has CT scan 2 years ago which was same. Patient has also been having increase in her total bilirubin. The rest of her LFTs have stayed normal. I am unsure as to the cause of her hyperbilirubinemia. Patient also has macrocytic anemia. I explained that the anemia and hyperbilirubinemia may be going [id number] with there is also still dilated common bile duct. I discussed ERCP with evaluation of the bile duct and its contents. I discussed the procedure as well as the risks including modality to bleeding, infection, perforation of the bile duct or bowel, placement stent, pancreatitis. Patient understands the risks and is willing to proceed with ERCP. Antwon Brewer MD Pager: [facility] [address] [place] [address], [address] [place] [address] Office: I have re-examined the patient. There are no clinical changes since date of exam.
[2021-07-13 12:00] VITALS: BP 105/63; BP 122/68; PULSE 59; RESP 14; TEMP 36.4; O2SAT 100
[2021-07-13 12:15] VITALS: BP 112/61; BP 169/78; PULSE 55; RESP 14; O2SAT 100
[2021-07-13 12:30] VITALS: BP 106/61; BP 122/68; PULSE 50; RESP 14; O2SAT 100
[2021-07-13 12:43] VITALS: BP 107/63; BP 122/68; PULSE 51; RESP 16; TEMP 36.4; O2SAT 100
[2021-07-13 13:00] VITALS: BP 122/68
--- NOTE | 2021-07-13 13:01 | EX.PCM.DISCH ---
Discharge Instructions Procedure General Surgery Diet Discharge Diet: No restrictions Activity Discharge Activity: May Shower Dressing / Incision Call your doctor if your incision/area has: Increased Pain/ Swelling Call your doctor if you observe: Fever of 101 or Higher Follow Up Care When: GI referral made for you for repeat ERCP attempt Test Results: Test results from this visit will be discussed in further detail at your follow-up appointment, if applicable. Discharge Plan Admission Attending Provider: Antwon Brewer Primary Care Provider: Mikel Tate Discharge Orders/Prescriptions Prescriptions: No Action metoprolol tartrate 50 mg tablet 50 mg PO BID RF: 0 lisinopril 20 mg tablet 20 mg PO BID RF: 0 rosuvastatin 40 mg tablet 40 mg PO QHS RF: 0 amlodipine 5 mg tablet 5 mg PO DAILY RF: 0 hydrochlorothiazide 25 mg tablet 25 mg PO DAILY RF: 0 calcium carbonate [Calcium 600] 600 mg calcium (1,500 mg) tablet 600 mg PO BID RF: 0 cranberry 400 mg capsule 400 mg PO BID RF: 0 aspirin 81 mg tablet,delayed release (DR/EC) 81 mg PO DAILY RF: 0 ascorbic acid (vitamin C) [Vitamin C] 500 mg Capsule, Extended Release 500 mg PO Q12H RF: 0 Referrals / Follow Up: Mikel Tate MD [Primary Care Provider] - Disposition Disposition (needs filled in before D/C Order can be placed): Home, Self Care
--- NOTE | 2021-07-13 13:35 | OP.PCM_ITS ---
Problems Associated Problem List Diagnoses (1) Common bile duct dilation: Report of Operation Date of Procedure: 07/13/21 Pre-Operative Diagnosis: Bile duct dilation Post-Operative Diagnosis: Same Surgery/Procedure Performed:: EGD with attempted ERCP Description of Procedure: Patient brought back to the operating room and general anesthesia was induced. The patient was placed in prone position. A well- lubricated ERCP scope was placed into the mouth and down into the esophagus and into the stomach and then into the small bowel. The ampulla appeared normal but I was unable to cannulate the ampulla. I was unable to cannulate the pancreatic or bile duct. The duct appeared normal with no duodenal malignancy. Unsure if there is stricture versus mass in the common bile duct. I will refer her to GI at a tertiary center for reattempt ERCP.
== END 2021-07-13 13:48 | disposition home or self-care (01) ==
LOC: EN 09:38 → AC 09:39
PROVIDERS: PCP Family Medicine; Referring Provider Surgery; Visit Provider Surgery
PROC: (CPT 43260; principal; 2021-07-13 10:15)
DX: K83.8 Other specified diseases of biliary tract (principal); I10 Essential (primary) hypertension; E78.00 Pure hypercholesterolemia, unspecified; Z79.82 Long term (current) use of aspirin; Z79.899 Other long term (current) drug therapy; Z20.822 Contact with and (suspected) exposure to COVID-19; Z80.0 Family history of malignant neoplasm of digestive organs; Z86.73 Personal history of transient ischemic attack (TIA), and cerebral infarction without residual deficits
CPT/HCPCS: 43260; 74328; 76000; 87426; 93005; C9803; J7120; J1610; J2405

== ENCOUNTER → 2021-10-04 | Outpatient (CLI) | payer MEDICARE, SELFPAY ==
--- NOTE | 2021-10-04 07:38 | MRI_ITS ---
EXAM: MR ABDOMEN WITHOUT AND WITH INTRAVENOUS CONTRAST CLINICAL INDICATION: BILIARY OBSTRUCTION TECHNIQUE: Multiplanar and multisequence MR images of the abdomen without and with intravenous contrast. This report was created using [employer] report generation technology. CONTRAST: IV 10 cc dotarem COMPARISON: CT Jul 05 2021 1:51pm FINDINGS: LOWER THORAX: Unremarkable. No pleural effusion. LIVER: Unremarkable. Normal morphology. No focal mass. GALLBLADDER AND BILE DUCTS: There is dilation of the common bile duct. A common bile duct stone is not seen. The CBD diameter is 6.3 mm. There are no gallstones. Mass is not visualized in the common bile duct. PANCREAS: Unremarkable. No focal cystic or solid mass. SPLEEN: Unremarkable. Normal size without focal cystic or solid mass. ADRENALS: Unremarkable. No nodules. KIDNEYS AND URETERS: Unremarkable. Normal renal size and position. No hydronephrosis. INTRAPERITONEAL SPACE: Unremarkable. No ascites or other fluid collection. No free air. VASCULATURE: There are calcifications of the abdominal aorta. This is consistent for atherosclerotic disease. There is NO abdominal aortic aneurysm. Vascular workup can be obtained based on clinical correlation. LYMPH NODES: No enlarged lymph nodes. MRI/MRI Abd WITH and W/O Contrast IMPRESSION: 1. There is dilation of the common bile duct. A common bile duct stone is not seen. The CBD diameter is 6.3 mm. 2. There are no gallstones. 3. Mass is not visualized in the common bile duct. Electronically Signed: Avila Clay MD at 21:54 EDT ,
[2021-10-08 09:26] LABS: EGFR FINGERSTICK > 60 mL/min (>60)
[2021-10-11 07:46] LABS: CREATININE FINGERSTICK < 0.90 mg/dL (0.55-1.02)
== END | disposition home or self-care (01) ==
LOC: MRI 07:11
PROVIDERS: PCP Family Medicine
DX: R94.5 Abnormal results of liver function studies (principal)
CPT/HCPCS: 74183; A9575; A4216

== ENCOUNTER 2021-11-02 07:09 | Day surgery (SDC) | payer MEDICARE, SELFPAY ==
[2021-11-02 07:28] VITALS: BP 172/78; PULSE 61; RESP 16; TEMP 36.2; O2SAT 100; BMI 17.9
[2021-11-02] MEDS: Lactated Ringers 1,000 ML 15 ML IV (07:34)
--- NOTE | 2021-11-02 07:38 | HP.PCM_ITS ---
History and Physical Date of Admission: 11/02/21 Intake Visit Reasons:?POSITIVE COLOGUARD Chief Complaint: positive cologuard Foam Dispenser Required: No Is patient in pain?: No Allergies Sulfa (Sulfonamide Antibiotics) Allergy (Verified 07/13/21 10:02) HivesTAPE Allergy (Uncoded 07/13/21 10:02) Rash Medications amlodipine 5 mg tablet 5 mg PO DAILY 07/09/21 [History Confirmed 10/09/21] aspirin 81 mg tablet,delayed release 81 mg PO DAILY 07/09/21 [History Confirmed 10/09/21] calcium carbonate 600 mg calcium (1,500 mg) tablet (Calcium) 600 mg PO BID 07/09/21 [History Confirmed 10/09/21] cranberry 400 mg capsule 400 mg PO BID 07/09/21 [History Confirmed 10/09/21] hydrochlorothiazide 25 mg tablet 25 mg PO DAILY 07/09/21 [History Confirmed 10/09/21] lisinopril 20 mg tablet 20 mg PO BID 07/09/21 [History Confirmed 10/09/21] metoprolol tartrate 50 mg tablet 50 mg PO BID 07/09/21 [History Confirmed 10/09/21] rosuvastatin 40 mg tablet 40 mg PO QHS 07/09/21 [History Confirmed 10/09/21] ascorbic acid (vitamin C) 500 mg capsule,extended release (Vitamin C) 500 mg PO Q12H 07/11/21 [History Confirmed 10/09/21] multivitamin 1 tab PO DAILY 10/09/21 [History Confirmed 10/09/21] Is last menstrual period known: No Post menopausal: Yes Patient : No PFSH Medical History?(Updated 10/09/21 @ 14:[address] Peter Lee MD) Alcohol use Anxiety Elevated bilirubin Heartburn High cholesterol History of echocardiogram History of edema History of pain when walking HTN (hypertension) Leg cramps Non-smoker Restless legs Stroke/cerebrovascular accident Syncope Wears contact lenses Surgical History?(Updated 10/09/21 @ 14:06 by Teagan Kelly) H/O section History of esophagogastroduodenoscopy (EGD) (~08/2021) S/P breast biopsy Family History?(Updated 10/09/21 @ 14:06 by Teagan Kelly) Father Colon cancer Hypertension Cancer ?? ? duodenumMother Hypertension Social History? Smoking Status:? Never smoker alcohol intake:? current HPI HPI HPI: TRACIE ARREGUIN, is a 71 F who presents to the office today for surgical consultation regarding a positive Cologuard test.? The patient is being referred by Dr Mikel Tate and a written copy my surgical consult recommendations will return to him.? That examination was collected on September 20, 2021.? It is of note that July 13, 2021 because of common bile duct dilatation the patient had an attempted ERCP by Dr. Gal Brewer.? This was not possibleSo the patient was referred to a tertiary center.? She had painless jaundice.? CT showed biliary dilatation without obstructing mass or stone.? She was supposed to have had an ERCP done through the [facility].? The most recent laboratory I have locally was June 14, 2021 showing a total bilirubin of 1.9 with a direct bilirubin of 0.45.? The remainder of her liver function tests were normal.? On October 04, 2021 at the [facility] the patient had an MRI of the abdomen with and without contrast.? Findings suggest dilatation of the common bile duct to 6.3 mm the stone is not identified.? There are no gallstones.? No masses seen within the common bile duct. The patient is very slender.? She did lose her 10 years ago.? She has weighed as low as in the 90s but currently is 101.? She feels that her weight is stable.? She does have some chronic anxiety and bowel related discomfort perhaps related to that.? She is otherwise not noted acute bowel problems other than the anxiety that goes along with the evaluation of her dilated common bile duct.? As noted above the current MRI is not identifying an acute issue.? She will be contacted by Dr. Mahendra Tavares for ongoing diagnosis and treatment protocol The patient's never had a colonoscopy.? There is no family history of colon cancer. Exam Const General: cooperative and healthy appearing Nutritional Appearance: underweight Orientation: alert HENMT Head: normal to inspection Eyes General: appearance normal, both eyes and all related structures Neck Neck: normal visual inspection Resp Effort & Inspection: normal respiratory effort Auscultation: clear to auscultation bilaterally Cardio Rate: regular rate Rhythm: regular rhythm GI Inspection: normal to inspection Skin General: no rashes or lesions noted Neuro General: patient alert, patient awake and patient oriented x3 Extrem General: no calf tenderness Psych Appearance: grossly normal Assessment and Plan Assessment and Plan (1) Positive colorectal cancer screening using Cologuard test: ?Status:?Acute ?Plan: I recommended the patient a colonoscopy with possible biopsy or polypectomy as indicated.? Plan to do this with monitored anesthesia care.? She is leaving on vacation in 2 days.? We will schedule it upon her return.? As noted in the history she is awaiting contact from [place] regarding evaluation of her common bile duct.? It would appear that there is no active findings at this time. She has had an opportunity ask and have questions answered.? We will schedule procedure at her discretion.? I very much appreciate the kind opportunity of assisting with her surgical care. Copy: Dr Mikel Lee M.D., F.A.C.S. I have re-examined the patient. There are no clinical changes since date of exam. Peter Lee M.D., F.A.C.S.
--- NOTE | 2021-11-02 08:15 | COLBX_PTH ---
PATIENT: TRACIE ARREGUIN LOC: EN U#:[id number] AGE/SX: 71/F ROOM: RE11/02/[address]: Dr. Peter Lee MD : 1950 BED: DIS: 11/02/2021 SPEC #: [id number] RECD: 11/02/21 11:02 STATUS: CARLOS EDUARDO AKBAR #: [id number] ROSAURA: 11/02/21 08:[address]: Peter Lee DEPT: SURGICAL PATHOLOGY RECD BY: Krystyna Dill ENTERED: 11/02/21 12:11 SP TYPE: COLON BX OTHR DR: Dr. Mikel Tate MD Tissues: Rectum, NOS Procedures: Surgery Specimen Level IV HEADER OPERATION: Colonoscopy (MAC) PRE-OP DIAGNOSIS: Positive colorectal cancer screening TISSUE SUBMITTED: Mid rectum polyp MICROSCOPIC DIAGNOSIS Mid rectum polyp, biopsy: Hyperplastic polyp. SJ:josé miguel 11/05/2021 MICROSCOPIC DESCRIPTION Slides are reviewed. GROSS DESCRIPTION Received in fixative is one container labeled with the patient's name and designated mid rectum polyp. The specimen consists of a piece of cheema-pink polyp measuring 0.5 x 0.4 x 0.2 cm. The specimen is totally submitted in one cassette. / SJ:rg 11/02/2021 TC:1 CPT: 63217
[2021-11-02 08:52] VITALS: BP 103/63; BP 172/78; PULSE 59; RESP 14; TEMP 36.5; O2SAT 98
--- NOTE | 2021-11-02 08:52 | OP.COLON_ITS ---
Patient Name: Tyesha Ponce Procedure Date: 11/02/2021 8:19 AM Date of : 1950 Age: 71 Procedure: Colonoscopy Indications: Cologuard positive Providers: Peter Lee MD Medicines: See the Anesthesia note for documentation of the administered medications Patient Profile: Last Colonoscopy: none. The patient's first colonoscopy is today. Complications: No immediate complications. Procedure: Pre-Anesthesia Assessment: - Prior to the procedure, a History and Physical was performed, and patient medications and allergies were reviewed. The patient's tolerance of previous anesthesia was also reviewed. The risks and benefits of the procedure and the sedation options and risks were discussed with the patient. All questions were answered, and informed consent was obtained. Prior Anticoagulants: The patient has taken no previous anticoagulant or antiplatelet agents. ASA Grade Assessment: II - A patient with mild systemic disease. After reviewing the risks and benefits, the patient was deemed in satisfactory condition to undergo the procedure. After I obtained informed consent, the scope was passed under direct vision. Throughout the procedure, the patient's blood pressure, pulse, and oxygen saturations were monitored continuously. The adult colonoscope was introduced through the anus and advanced to the cecum, identified by appendiceal orifice and ileocecal valve. The colonoscopy was technically difficult and complex due to a tortuous colon. Successful completion of the procedure was aided by changing the patient to a supine position and using manual pressure. The patient tolerated the procedure well. The quality of the bowel preparation was excellent. The ileocecal valve and the appendiceal orifice were photographed. Scope In: 8:27:19 AM Scope Withdrawal Time 0 hours 7 minutes 54 seconds Scope Out: 8:46:12 AM Total Procedure Duration Time 0 hours 18 minutes 53 seconds Findings: Hemorrhoids were found on perianal exam. A 7 mm polyp was found in the rectum. The polyp was sessile. The polyp was removed with a hot snare. Resection and retrieval were complete. The colon (entire examined portion) was moderately tortuous. The exam was otherwise without abnormality. Impression: - Hemorrhoids found on perianal exam. - One 7 mm polyp in the rectum, removed with a hot snare. Resected and retrieved. - Tortuous colon. - The examination was otherwise normal. Recommendation: - Discharge patient to home. - Resume previous diet. - Continue present medications. - Telephone my office for pathology results in 1 week. - Repeat colonoscopy in 5 years for surveillance. Procedure Code(s): --- Professional --- 37916, Colonoscopy, flexible; with removal of tumor(s), polyp(s), or other lesion(s) by snare technique Diagnosis Code(s): --- Professional --- K64.9, Unspecified hemorrhoids K62.1, Rectal polyp Q43.8, Other specified congenital malformations of intestine CPT copyright 2017 [employer]. All rights reserved. The codes documented in this report are preliminary and upon reject opener and filler review may be revised to meet current compliance requirements. Peter Lee MD 11/02/2021 8:51:35 AM This report has been signed electronically. Number of Addenda: 0 Note Initiated On: 11/02/2021 8:19 AM
--- NOTE | 2021-11-02 08:52 | OP.CCLET_ITS ---
11/02/2021 Mikel Tate [address] [place] [address] Re : Colonoscopy procedure for Tyesha Matthewstrevor Dear Dr. Tate This procedure was performed on Tuesday, November 02, 2021. My impressions and recommendations are as follows: Impressions : - Hemorrhoids found on perianal exam. - One 7 mm polyp in the rectum, removed with a hot snare. Resected and retrieved. - Tortuous colon. - The examination was otherwise normal. Recommendations : - Discharge patient to home. - Resume previous diet. - Continue present medications. - Telephone my office for pathology results in 1 week. - Repeat colonoscopy in 5 years for surveillance. My findings are described in the full procedure note, which is enclosed. If I can be of further assistance, please feel free to contact me at Doctor phone number(s): Work: . Sincerely, Peter Lee MD 11/02/2021 8:51:35 AM This report has been signed electronically.
[2021-11-02 09:01] VITALS: BP 172/78; BP 94/60; PULSE 60; RESP 16; O2SAT 98
[2021-11-02 09:06] VITALS: BP 110/66; BP 172/78; PULSE 62; RESP 16; O2SAT 100
[2021-11-02 09:09] VITALS: BP 118/67; BP 172/78; PULSE 60; RESP 18; TEMP 35.9; O2SAT 100
[2021-11-02 09:20] VITALS: BP 172/78
== END 2021-11-02 09:30 | disposition home or self-care (01) ==
LOC: EN 07:09 → AC 07:13
PROVIDERS: PCP Family Medicine; Referring Provider Family Medicine; Visit Provider Surgery
PROC: 0DJD8ZZ Inspection of Lower Intestinal Tract, Via Natural or Artificial Opening Endoscopic (ICD-10-PCS; CPT 45378; principal; 2021-11-02 08:10)
DX: K64.9 Unspecified hemorrhoids (principal); K62.1 Rectal polyp; Q43.8 Other specified congenital malformations of intestine; I10 Essential (primary) hypertension; E78.00 Pure hypercholesterolemia, unspecified; Z79.82 Long term (current) use of aspirin; Z79.899 Other long term (current) drug therapy; Z86.73 Personal history of transient ischemic attack (TIA), and cerebral infarction without residual deficits
CPT/HCPCS: 45385; 88305; J7120; J2405

== ENCOUNTER → 2022-04-11 | Outpatient (CLI) | payer MEDICARE, SELFPAY ==
[2022-04-11 10:18] LABS: Absolute Lymphocyte Count 1.14 X10^3/uL (0.83-4.51); Absolute Neutrophil Count 2.2 X10^3/uL (2.0-7.7); Basophil# 0.03 X10^3/uL; Basophil% 0.8 % (0-1); Eosinophil# 0.04 X10^3/uL; Eosinophils% 1.1 % (0-5); Hematocrit 36.2 % (37-47); Hemoglobin 12.1 g/dL (12.0-15.0); Lymphocyte # 1.14 X10^3/ul (0.83-4.51); Lymphocyte % 30.4 % (19-41); Mean Corp Hgb Conc 33.4 g/dL (32-36); Mean Corpuscular Hgb 33.9 pg (27.0-32.0); Mean Corpuscular Volume 101.4 fL (81-99); Mean Platelet Vol. 11.6 fl (6.2-12.0); Monocyte# 0.34 X10^3/uL; Monocyte% 9.1 % (0-10); NRBC Flagged by Analyzer 0 % (0-5); Neutrophil # 2.19 X10^3/uL (2.7-7.7); Neutrophil % 58.3 % (47-70); Platelet Count 179 K/mm3 (150-450); RBC Distribution Width CV 12.5 % (11.6-14.6); RBC Distribution Width SD 46.9 fl (35.1-43.9); Red Blood Count 3.57 M/mm3 (4.2-5.4); White Blood Count 3.8 K/mm3 (4.4-11.0)
[2022-04-11 10:37] LABS: Vitamin B12 675 pg/mL (211-911)
[2022-04-11 11:46] LABS: ALB/GLOB Ratio 1.2 RATIO (0.9-2.4); AST(SGOT) 40 U/L (15-37); Alanine Aminotransfer ALT/SGPT 33 U/L (13-56); Albumin, Serum 3.7 g/dL (3.2-5.0); Alkaline Phosphatase 65 U/L (45-117); Anion Gap 8 (5-15); BUN 18 mg/dL (7-18); BUN/Creat Ratio 21.8 RATIO (10-20); Bilirubin, Direct 0.41 mg/dL (0.00-0.30); Calcium,Total 9.2 mg/dL (8.5-10.1); Chloride 102 mmol/L (98-107); Cholesterol 151 mg/dL (200); Creatinine, Serum 0.83 mg/dL (0.55-1.02); EST Glomerular Filtration Rate 72 mL/min (>60); Est Glom Filt Rate - Afr Amer 87 mL/min (>60); Folates, (Folic Acid) > 100.00 ng/mL (3.1-55.4); Glucose 87 mg/dL (74-106); High Density Lipoprotein 85 mg/dL; Potassium 3.7 mmol/L (3.5-5.1); Protein, Total 6.7 g/dL (6.4-8.2); Sodium Level 140 mmol/L (136-145); Thyroid Stim Hormone (TSH) 3.18 uIU/mL (0.358-3.74); Triglycerides 86 mg/dL; Very Low Density Lipoprotein 17 mg/dL (5-40)
== END | disposition home or self-care (01) ==
LOC: MFPLAB 09:13
PROVIDERS: PCP Family Medicine; Referring Provider Family Medicine; Visit Provider Family Medicine
DX: M85.80 Other specified disorders of bone density and structure, unspecified site (principal); E80.6 Other disorders of bilirubin metabolism; E78.5 Hyperlipidemia, unspecified; I10 Essential (primary) hypertension; D53.9 Nutritional anemia, unspecified
CPT/HCPCS: 36415; 80053; 80061; 82248; 82306; 82607; 82746; 84443; 85025

== ENCOUNTER → 2022-04-18 | Outpatient (CLI) | payer MEDICARE, SELFPAY ==
--- NOTE | 2022-04-18 09:01 | BD_ITS ---
STUDY: DUAL ENERGY X-RAY ABSORPTIOMETRY / DXA REASON FOR EXAM: Female, 71 years old. M85.89 TECHNIQUE: Bone Mineral Density (BMD) measurements of lumbar spine and bilateral hips were obtained. COMPARISON: Comparison is made with prior study dated 11/09/2019. FINDINGS: Lumbar Spine (L1-L4): g/cm2 (0.881) / T-score (-1.5) / Z-score (0.7) Findings are suggestive of osteopenia with a low fracture risk. Left Femur Total: g/cm2 (0.782) / T-score (-1.3) / Z-score (0.3) Left Femoral Neck: g/cm2 (0.690) / T-score (-1.4) / Z-score (0.5) Right Femur Total: g/cm2 (0.734) / T-score (-1.7) / Z-score (-0.1) Right Femoral Neck: g/cm2 (0.686) / T-score (-1.5) / Z-score (0.4) The T-Scores on the most recent prior examination were: Lumbar Spine (L1-L4): There has been improvement of bone density since the previous examination. Left Femur Total: which represents a worsening of 5.1%. Right Femur Total: which represents a worsening of 13.2%. BD/Dexa Bone Density Study IMPRESSION: The patient is considered osteopenic as outlined below according to World Anthony Organization (WHO) criteria with a moderate fracture risk. There has been worsening of bone density since the previous examination. Reference Information: The T-score is the number of standard deviations above or below the standard which is normal for young adults at their peak bone mineral density. The World Health Organization (WHO) interprets the T-scores as follows: Above -1 Normal bone density Between -1 and -2.5 Osteopenia Equal to / or below -2.5 Osteoporosis As a practical clinical guideline, osteopenia may be graded as follows: Mild -1 through -1.5 Moderate -1.6 through -2.0 Severe -2.1 through -2.4 The Z-score is the number of standard deviations above or below age-matched controls. A Z-score of less than -1.5 would be considered abnormal. References: 1. NIH Osteoporosis and Related Bone Diseases www osteo.org 2. International Society for Clinical Densitometry www iscd.org 3. National Osteoporosis Foundation www nof.org Electronically Signed: Lloyd Khan MD at 13:36 EST ,
== END | disposition home or self-care (01) ==
PROVIDERS: PCP Family Medicine; Visit Provider Family Medicine
DX: M85.89 Other specified disorders of bone density and structure, multiple sites (principal)
CPT/HCPCS: 77080

== ENCOUNTER → 2022-07-01 | Outpatient (CLI) | payer MEDICARE, SELFPAY ==
--- NOTE | 2022-07-01 15:44 | RAD_ITS ---
STUDY: X-RAY - LUMBOSACRAL SPINE REASON FOR EXAM: Female, 72 years old. Pain. History of repetitively lifting heavy objects. TECHNIQUE: 6 view(s) of the lumbosacral spine were obtained. COMPARISON: None FINDINGS: Normal lumbar lordosis. Mild levoscoliosis with the convexity at L3. There is normal alignment of the vertebrae. There is no alteration of alignment with flexion or extension. There is demineralization of the lumbar vertebrae. There is multi-level degenerative disc disease with multi-level disc space narrowing. There is no evidence of acute fracture or loss of vertebral axial height. No evidence of spondylolisthesis. Normal bilateral sacral ala, sacroiliac joints, and visualized sacrum. There is atherosclerotic calcification of the abdominal aorta without a demonstrated aneurysm. RAD/L/S Spine w Bend Min 6 Vw IMPRESSION: Degenerative changes and scoliosis of the lumbar spine. Electronically Signed: Jair Rosenbaum DO at 21:26 EDT ,
== END | disposition home or self-care (01) ==
LOC: MTRAD 15:43
PROVIDERS: PCP Family Medicine; Referring Provider Family Medicine; Visit Provider Family Medicine
DX: M47.819 Spondylosis without myelopathy or radiculopathy, site unspecified (principal)
CPT/HCPCS: 72114

== ENCOUNTER 2022-07-24 13:30 | Outpatient (RCR) | payer MEDICARE, SELFPAY ==
--- NOTE | 2022-05-03 10:24 | HP.PTEVAL ---
Patient's Visit Information TRACIE ARREGUIN is a 72 year old F referred to Physical Therapy by Dr. Mikel Tate MD with a diagnosis of Facet Arthropathy. Date of Evaluation: 05/03/22 Physical Therapist: TIMOTEO Gong - Visit Plan Frequency: 2x /Week Duration: 6 Weeks Plan: 2X/ week for 6 weeks for B hip stretching, neutral spine core stability, B hip strength, SI joint management with HEP. HEP: seated knee to shoulder pirifomis stretch - Subjective She has R hip pain and painful to bend FW and put on her slippers. She can do everything. Every now and then if she does any kind of jerky movememnt to the L she will pain. She point to the R SI area. She get no N&T. She feels that she has no weakness. She has some pain rolling over in bed... it is a quick pain and then goes away. Trying to sit self up in bed is tough. She walks a lot. She started a gentle YOGA class and hates doing weight bearing. - Pain R hip pain Pain Intensity (Out of 10): 4 L hip pain Pain Intensity (Out of 10): 0 - Objective Gait: Pt walks with good stride, good posture, increase slight veering, caught R foot on ground once and forefoot abd. LE MMT: R hip flex 9.9 and L hip flex 11.2. R knee ext 26.1 and L knee ext 26.9. R knee flex 16.6 and L knee flex 15.3. R hip abd 12.3 and L 12. Pt is able to walk on heels and toes without an issue. Trunk AROM: flexion 75%, Ext 50%, SB B 100%, Rot B 100%. Good B piriformis length but painful at end range seated knee to opp shoulder stretch, Fair B IT band Length, good B Hamstring length, no pain with SKC. Pt is able to do a good PT. Tender to palpation over the R SI joint area. Pt had increase tightness and pain with seated piriformis stretch on the R and just tightness on the L - Balance/Special Test Scores Oswestry Low Back Score: 5 - Goals Goal 1:: I HEP Goal Time Frame: 6-8 Weeks Goal 2:: Be able to bend forward or sit and lean FW without having the R sided hip/back pain and be able to turn to the L without having L sided back pain Goal Time Frame: 6-8 Weeks Goal 3:: Increase Piriformis length on the R with no pain Goal Time Frame: 6-8 Weeks Goal 4:: Be able to roll over in bed without pain Goal Time Frame: 6-8 Weeks - Rehabilitation Potential Rehabilitation Potential: Good - Anticipated Interventions Patient/Client Instruction: Educate patient on: Condition, Plan of Care For the Purpose of:: To decrease pain, To improve nutrient delivery to tissue, To improve muscle performance and motor function, To improve ability to perform ADL's, To increase tolerance to activity/condition/position, To improve performance and independence with ADL's, To decrease level of supervision to perform tasks, To improve ability of physical actions for home/community/work/leisure, To improve gait and locomotor functions, To improve health of tissue, To decrease soft tissue restriction, To increase flexibility/ROM, To improve safety with gait Therapeutic Exercise to Include: Strength training, Endurance training, Balance training, Postural training, Flexibilty training, Gait and locomotor training, Neuromotor development, Active ROM, Dynamic Lumbar Stabilization For the Purpose of:: To decrease pain, To increase ROM, To improve nutrient delivery to tissue, To improve muscle performance and motor function, To improve ability to perform ADL's, To increase tolerance to activity/condition/position, To improve performance and independence with ADL's, To decrease level of supervision to perform tasks, To improve ability of physical actions for home/community/work/leisure, To improve gait and locomotor functions, To improve health of tissue, To decrease soft tissue restriction, To increase flexibility/ROM Manual Therapy Techniques to Include: Mobilization, Passive ROM, Soft tissue mobilization For the Purpose of:: To decrease pain, To increase ROM, To improve nutrient delivery to tissue, To improve muscle performance and motor function, To improve ability to perform ADL's Thank you for the opportunity to evaluate your patient. For Medicare and Medicare HMO plans, please review the plan of care and approve it. It will need to be FAXED BACK to us at [phone] for Medicare purposes. For Medicare only, by signing this I certify the plan of care. Please let me know if there are questions or concerns regarding this plan of care. Physician Signature: Date:
--- NOTE | 2022-07-24 18:45 | HP.PT.NRP ---
TRACIE ARREGUIN was seen in my office for initial evaluation on 05/03/22. The following Plan of Care was established for this patient: Initial Frequency: 2x /Week Initial Duration: 6 Weeks Patient/Client Instruction: Educate patient on: Condition, Plan of Care For the Purpose of:: To decrease pain, To improve nutrient delivery to tissue, To improve muscle performance and motor function, To improve ability to perform ADL's, To increase tolerance to activity/condition/position, To improve performance and independence with ADL's, To decrease level of supervision to perform tasks, To improve ability of physical actions for home/community/work/leisure, To improve gait and locomotor functions, To improve health of tissue, To decrease soft tissue restriction, To increase flexibility/ROM, To improve safety with gait Therapeutic Exercise to Include: Strength training, Endurance training, Balance training, Postural training, Flexibilty training, Gait and locomotor training, Neuromotor development, Active ROM, Dynamic Lumbar Stabilization For the Purpose of:: To decrease pain, To increase ROM, To improve nutrient delivery to tissue, To improve muscle performance and motor function, To improve ability to perform ADL's, To increase tolerance to activity/condition/position, To improve performance and independence with ADL's, To decrease level of supervision to perform tasks, To improve ability of physical actions for home/community/work/leisure, To improve gait and locomotor functions, To improve health of tissue, To decrease soft tissue restriction, To increase flexibility/ROM Manual Therapy Techniques to Include: Mobilization, Passive ROM, Soft tissue mobilization For the Purpose of:: To decrease pain, To increase ROM, To improve nutrient delivery to tissue, To improve muscle performance and motor function, To improve ability to perform ADL's This patient was last seen in our office . Pertinent comments regarding their Physical therapy will appear below: At this point I will be discontinuing this patient from physical therapy. I would be happy to see this patient again in the future if found appropriate by the physician. Thank you! Tia Boss, TIMOTEO Balance/Gait/Functional tests - Balance/Special Test Scores Oswestry Low Back Score: 6
== END 2022-07-24 19:00 | disposition home or self-care (01) ==
LOC: PT 13:30
PROVIDERS: PCP Family Medicine; Referring Provider Family Medicine; Visit Provider Family Medicine
DX: M47.819 Spondylosis without myelopathy or radiculopathy, site unspecified (principal)
CPT/HCPCS: 97110; 97113; 97140; 97161; 97530

== ENCOUNTER → 2022-08-02 | Outpatient (CLI) | payer MEDICARE, SELFPAY ==
[2022-08-02 12:44] LABS: Mucous, Urine 0 SEEN /hpf (<or=2+); Squamous Epithelial Cells - UA 0 SEEN /hpf (5-10)
[2022-08-02 12:54] LABS: Color, Urine Yellow (Yellow); Glucose, Dipstick Normal (Normal); Ketone-Dipstick Negative (Negative); Leukocyte Esterase-Dipstick 500 /ul (Negative); Nitrite-Dipstick Positive (Negative); Occult Blood-Urine 250 /ul (Negative); Protein-Dipstick 100 mg/dl (Negative); Urine Bilirubin Dipstick Negative (Negative); Urine Clarity Cloudy (Clear); Urine Urobilinogen Normal (Normal)
[2022-08-02 13:12] LABS: Bacteria 1+ /hpf (None Seen); Red Blood Cells-Urine > 100 SEEN /hpf (0-5); White Blood Cells >100 SEEN /hpf (0-5)
== END | disposition home or self-care (01) ==
LOC: LABSPEC 12:24
PROVIDERS: PCP Family Medicine; Referring Provider Nurse Practitioner Family; Visit Provider Nurse Practitioner Family
DX: N39.0 Urinary tract infection, site not specified (principal); R30.0 Dysuria
CPT/HCPCS: 81001; 87077; 87086; 87088; 87186

== ENCOUNTER → 2022-09-26 | Outpatient (CLI) | payer MEDICARE, SELFPAY | END | disposition home or self-care (01) | LOC: LABSPEC 15:15 | PROVIDERS: PCP Family Medicine; Referring Provider Family Medicine; Visit Provider Family Medicine | DX: R30.0 Dysuria (principal) | CPT/HCPCS: 87086 ==

== ENCOUNTER → 2022-11-04 | Outpatient (CLI) | payer MEDICARE, SELFPAY | END | disposition home or self-care (01) | PROVIDERS: PCP Family Medicine; Visit Provider Family Medicine | DX: R30.0 Dysuria (principal) | CPT/HCPCS: 87077; 87086; 87088 ==

== ENCOUNTER → 2022-12-19 | Outpatient (CLI) | payer MEDICARE, SELFPAY ==
[2022-12-19 10:57] LABS: ALB/GLOB Ratio 0.9 RATIO (0.9-2.4); AST(SGOT) 32 U/L (15-37); Alanine Aminotransfer ALT/SGPT 34 U/L (13-56); Albumin, Serum 3.5 g/dL (3.2-5.0); Alkaline Phosphatase 68 U/L (45-117); Anion Gap 6 (5-15); BUN 21 mg/dL (7-18); BUN/Creat Ratio 24.6 RATIO (10-20); Chloride 104 mmol/L (98-107); Cholesterol 143 mg/dL (200); Creatinine, Serum 0.85 mg/dL (0.55-1.02); EST Glomerular Filtration Rate 70 mL/min (>60); Est Glom Filt Rate - Afr Amer 84 mL/min (>60); Globulin 3.7 g/dL (2.2-4.2); Glucose 95 mg/dL (74-106); High Density Lipoprotein 66 mg/dL; Potassium 3.8 mmol/L (3.5-5.1); Protein, Total 7.2 g/dL (6.4-8.2); Sodium Level 138 mmol/L (136-145); Triglycerides 100 mg/dL; Very Low Density Lipoprotein 20 mg/dL (5-40)
[2022-12-19 11:10] LABS: Absolute Lymphocyte Count 1.64 X10^3/uL (0.83-4.51); Absolute Neutrophil Count 2.4 X10^3/uL (2.0-7.7); Basophil# 0.02 X10^3/uL; Basophil% 0.4 % (0-1); Eosinophil# 0.03 X10^3/uL; Eosinophils% 0.7 % (0-5); Hematocrit 35.2 % (37-47); Hemoglobin 11.4 g/dL (12.0-15.0); Lymphocyte # 1.64 X10^3/ul (0.83-4.51); Lymphocyte % 35.7 % (19-41); Mean Corp Hgb Conc 32.4 g/dL (32-36); Mean Corpuscular Hgb 33.4 pg (27.0-32.0); Mean Corpuscular Volume 103.2 fL (81-99); Mean Platelet Vol. 10.6 fl (6.2-12.0); Monocyte# 0.52 X10^3/uL; Monocyte% 11.3 % (0-10); NRBC Flagged by Analyzer 0 % (0-5); Neutrophil # 2.36 X10^3/uL (2.7-7.7); Neutrophil % 51.2 % (47-70); Platelet Count 279 K/mm3 (150-450); RBC Distribution Width CV 12.7 % (11.6-14.6); RBC Distribution Width SD 48.2 fl (35.1-43.9); Red Blood Count 3.41 M/mm3 (4.2-5.4); White Blood Count 4.6 K/mm3 (4.4-11.0)
== END | disposition home or self-care (01) ==
LOC: MFPLAB 08:51
PROVIDERS: PCP Family Medicine; Visit Provider Family Medicine
DX: I10 Essential (primary) hypertension (principal); E80.6 Other disorders of bilirubin metabolism; D53.9 Nutritional anemia, unspecified; E78.5 Hyperlipidemia, unspecified; M85.80 Other specified disorders of bone density and structure, unspecified site
CPT/HCPCS: 36415; 80053; 80061; 82306; 85025

== ENCOUNTER → 2022-12-20 | Outpatient (CLI) | payer MEDICARE, SELFPAY ==
[2022-12-20 10:10] LABS: Bacteria 0 SEEN /hpf (None Seen); Mucous, Urine 0 SEEN /hpf (<or=2+); Red Blood Cells-Urine 0 SEEN /hpf (0-5); Squamous Epithelial Cells - UA 0 SEEN /hpf (5-10); White Blood Cells 0 SEEN /hpf (0-5)
[2022-12-20 12:23] LABS: Color, Urine Yellow (Yellow); Glucose, Dipstick Normal (Normal); Ketone-Dipstick Negative (Negative); Leukocyte Esterase-Dipstick Negative /ul (Negative); Nitrite-Dipstick Negative (Negative); Occult Blood-Urine Negative /ul (Negative); Protein-Dipstick Negative (Negative); Urine Bilirubin Dipstick Negative (Negative); Urine Clarity Clear (Clear); Urine Urobilinogen Normal (Normal)
[2022-12-20 13:51] LABS: Vitamin B12 1010 pg/mL (211-911)
[2022-12-20 14:13] LABS: Ferritin 67 ng/mL (8-252); Folates, (Folic Acid) > 100.00 ng/mL (3.1-55.4); Iron 91 ug/dL (50-170); Iron Binding Capacity,Total 362 ug/dL (250-450)
== END | disposition home or self-care (01) ==
LOC: MFPLAB 10:07
PROVIDERS: PCP Family Medicine; Visit Provider Family Medicine
DX: D53.9 Nutritional anemia, unspecified (principal)
CPT/HCPCS: 36415; 81001; 82607; 82728; 82746; 83540; 83550

== ENCOUNTER → 2023-06-10 | Outpatient (CLI) | payer MEDICARE, SELFPAY ==
[2023-06-10 10:20] LABS: Mucous, Urine 0 SEEN /hpf (<or=2+)
[2023-06-10 12:29] LABS: Color, Urine Yellow (Yellow); Glucose, Dipstick Normal (Normal); Ketone-Dipstick Negative (Negative); Leukocyte Esterase-Dipstick 100 /ul (Negative); Nitrite-Dipstick Positive (Negative); Occult Blood-Urine 10 /ul (Negative); Protein-Dipstick 15 mg/dl (Negative); Urine Bilirubin Dipstick Negative (Negative); Urine Clarity Sl. Cloudy (Clear); Urine Urobilinogen Normal (Normal)
[2023-06-10 12:47] LABS: Bacteria 2+ /hpf (None Seen); Red Blood Cells-Urine 0-5 SEEN /hpf (0-5); Squamous Epithelial Cells - UA 0-5 SEEN /hpf (5-10); White Blood Cells 10-25 SEEN /hpf (0-5)
[2023-06-10 12:57] LABS: Vitamin D,25 Hydroxy 66.5 ng/mL
[2023-06-10 12:58] LABS: Absolute Lymphocyte Count 1.48 X10^3/uL (0.83-4.51); Absolute Neutrophil Count 2.7 X10^3/uL (2.0-7.7); Basophil# 0.02 X10^3/uL; Basophil% 0.4 % (0-1); Eosinophil# 0.04 X10^3/uL; Eosinophils% 0.8 % (0-5); Hematocrit 36.1 % (37-47); Hemoglobin 12.1 g/dL (12.0-15.0); Lymphocyte # 1.48 X10^3/ul (0.83-4.51); Lymphocyte % 30.9 % (19-41); Mean Corp Hgb Conc 33.5 g/dL (32-36); Mean Corpuscular Hgb 33.5 pg (27.0-32.0); Mean Platelet Vol. 11.5 fl (6.2-12.0); Monocyte# 0.52 X10^3/uL; Monocyte% 10.9 % (0-10); NRBC Flagged by Analyzer 0 % (0-5); Neutrophil # 2.72 X10^3/uL (2.7-7.7); Neutrophil % 56.8 % (47-70); Platelet Count 194 K/mm3 (150-450); RBC Distribution Width CV 12.9 % (11.6-14.6); RBC Distribution Width SD 47.4 fl (35.1-43.9); Red Blood Count 3.61 M/mm3 (4.2-5.4); White Blood Count 4.8 K/mm3 (4.4-11.0)
[2023-06-10 13:36] LABS: ALB/GLOB Ratio 1.2 RATIO (0.9-2.4); AST(SGOT) 31 U/L (15-37); Alanine Aminotransfer ALT/SGPT 22 U/L (13-56); Albumin, Serum 3.9 g/dL (3.2-5.0); Alkaline Phosphatase 65 U/L (45-117); Anion Gap 6 (5-15); BUN 18 mg/dL (7-18); BUN/Creat Ratio 24.6 RATIO (10-20); Calcium,Total 9.2 mg/dL (8.5-10.1); Chloride 104 mmol/L (98-107); Cholesterol 161 mg/dL (200); Creatinine, Serum 0.73 mg/dL (0.55-1.02); EST Glomerular Filtration Rate 83 mL/min (>60); Est Glom Filt Rate - Afr Amer 100 mL/min (>60); Globulin 3.2 g/dL (2.2-4.2); Glucose 86 mg/dL (74-106); High Density Lipoprotein 85 mg/dL; Potassium 3.6 mmol/L (3.5-5.1); Protein, Total 7.1 g/dL (6.4-8.2); Sodium Level 139 mmol/L (136-145); Thyroid Stim Hormone (TSH) 2.58 uIU/mL (0.358-3.74); Triglycerides 64 mg/dL; Very Low Density Lipoprotein 13 mg/dL (5-40)
== END | disposition home or self-care (01) ==
LOC: MFPLAB 10:19
PROVIDERS: PCP Family Medicine; Visit Provider Family Medicine
DX: I10 Essential (primary) hypertension (principal); E55.9 Vitamin D deficiency, unspecified
CPT/HCPCS: 36415; 80053; 80061; 81001; 82306; 84443; 85025

== ENCOUNTER → 2023-06-17 | Outpatient (CLI) | payer MEDICARE, SELFPAY ==
[2023-06-17 16:05] LABS: Bilirubin, Direct 0.45 mg/dL (0.00-0.30)
== END | disposition home or self-care (01) ==
LOC: MFPLAB 11:55
PROVIDERS: PCP Family Medicine; Visit Provider Family Medicine
DX: E80.6 Other disorders of bilirubin metabolism (principal)
CPT/HCPCS: 36415; 82247; 82248

== ENCOUNTER → 2023-06-23 | Outpatient (CLI) | payer MEDICARE, SELFPAY ==
--- NOTE | 2023-06-23 08:10 | CT_ITS ---
STUDY: CT ABDOMEN AND PELVIS WITH CONTRAST REASON FOR EXAM: Female, 73 years old. PAINLESS JAUNDICE RADIATION DOSAGE (If Supplied By Facility): CTDIvol = ( 14.7 ) mGy, DLP = ( 283.99 ) mGycm TECHNIQUE: Transaxial images were obtained from the dome of the diaphragm to the symphysis pubis without oral contrast. Oral and amp; IV Readi-CAT and amp; 100mL Isovue-300 was administered. Sagittal and coronal images were reconstructed. Individualized dose optimization techniques were used for this CT. COMPARISON: None. FINDINGS: The visualized lung bases are unremarkable. The visualized portions of the heart are within normal limits. Mild degree of central intrahepatic biliary ductal dilatation. The common bile duct is dilated measuring 7.4 mm in transverse dimension. It tapers along its distal portion. Cannot rule out tiny gallstone. Densities are seen within the gallbladder lumen. These may represent gallstones or sludge. Correlation with ultrasound of the gallbladder is recommended for further evaluation. Normal spleen. Normal pancreas. Normal bilateral adrenal glands. Normal right kidney. Normal left kidney. Normal visualized stomach. Normal small intestine. There are scattered colonic diverticula consistent with diverticulosis. The appendix is visualized and appears normal. There is scattered atherosclerotic calcification of the abdominal aorta, without a demonstrated aneurysm. Normal inferior vena cava. Normal retroperitoneum. Normal urinary bladder. Normal abdominal wall. Normal osseous structures. CT/Abdomen/Pelvis WITH Contrast IMPRESSION: There is mild dilatation of the central intrahepatic biliary ducts as well as the common bile duct. Low level density is seen within the gallbladder lumen. Correlation with the ultrasound of the right upper quadrant is recommended for further evaluation. The common bile duct tapers along its distal portion. A tiny distal common bile duct stone cannot be excluded. Correlation with ERCP recommended. Electronically Signed: Lloyd Khan MD at 11:06 EDT ,
== END | disposition home or self-care (01) ==
PROVIDERS: PCP Family Medicine; Referring Provider Family Medicine; Visit Provider Family Medicine
DX: E80.6 Other disorders of bilirubin metabolism (principal)
CPT/HCPCS: 74177; Q9967

== ENCOUNTER → 2024-12-29 | Outpatient (CLI) | payer MEDICARE, SELFPAY ==
--- NOTE | 2024-12-29 16:48 | RAD_ITS ---
PROCEDURE: CHEST PA AND LATERAL 12/29/2024 REASON FOR EXAM: COUGH TECHNIQUE: Procedure Code: RADCXR Modality: DX Procedure: CHEST PA AND LATERAL FINDINGS: The heart is normal in size. The lungs are clear. The lungs are hyperaerated. No acute osseous abnormalities. RAD/Chest PA and Lateral IMPRESSION: Hyperaerated lungs which suggest COPD. Reading Location: [id number]
== END | disposition home or self-care (01) ==
LOC: MTRAD 16:48
PROVIDERS: PCP Family Medicine; Referring Provider Physician Assistant; Visit Provider Physician Assistant
DX: R05.9 Cough, unspecified (principal)
CPT/HCPCS: 71046

== ENCOUNTER → 2025-02-17 | Outpatient (CLI) | payer MEDICARE, SELFPAY ==
--- NOTE | 2025-02-17 09:20 | BD_ITS ---
PROCEDURE: DEXA BONE DENSITY STUDY 02/17/2025 REASON FOR EXAM: F, age 74 y/o . Postmenopausal. TECHNIQUE: Procedure Code: BDDBD Modality: DX Procedure: DEXA BONE DENSITY STUDY COMPARISON: April 18, 2022. FINDINGS: BMD and T-SCORES Lumbar spine: 0.886 g/cm2, T-score -1.5 Levels: L1 through L4 Change from prior: Improvement of 0.6%. Left femoral neck: 0.709 g/cm2, T-score -1.3 Femoral neck comparison data not recommended for monitoring change. Left total hip: 0.807 g/cm2, T-score -1.1 Change from prior: Improvement of 3.1%. Right femoral neck: 0.662 g/cm2, T-score -1.7 Femoral neck comparison data not recommended for monitoring change. Right total hip: 0.740 g/cm2, T-score -1.7 Change from prior: Improvement of 0.7%. The World Health Organization has defined the following categories based on bone density: Normal bone density: T-score equal to or greater than -1.0 Osteopenia: T-score between -1.0 and -2.5 Osteoporosis: T-score equal to or less than -2.5 FRAX (or Comparable) Fracture Risk Assessment: 10 Year Probability of Fracture: Major Osteoporotic Fracture: 21% Hip Fracture: 5.2% (Note: FRAX is not to be reported in setting of normal range bone density, osteoporosis on DEXA, known history of osteoporosis, prior osteoporotic hip or vertebral fracture, or for any patient undergoing pharmacological treatment for bone loss.) The National Osteoporosis Foundation (NOF) recommends pharmacological treatment for patients with a FRAX 10-year risk of 3% or higher for a hip fracture, or 20% or higher for a major osteoporotic fracture, to prevent osteoporosis and reduce fracture risk. The patient does meet the pharmacological treatment recommendations for prevention of osteoporosis. BD/Dexa Bone Density Study IMPRESSION: OSTEOPENIA. Recommend follow-up as clinically warranted. Reading Location: [place] [id number]
== END | disposition home or self-care (01) ==
PROVIDERS: PCP Family Medicine; Referring Provider Family Medicine; Visit Provider Family Medicine
DX: Z13.820 Encounter for screening for osteoporosis (principal); Z78.0 Asymptomatic menopausal state
CPT/HCPCS: 77080